=== PATIENT | female | born 1960 | race Caucasian/White ===

== ENCOUNTER 2020-02-11 09:34 | Outpatient (REF) | payer OTHER, SELFPAY ==
--- NOTE | 2020-02-11 09:40 | MM_ITS ---
EXAMINATION: MM SCREENING DIGITAL BREAST TOMOSYNTHESIS, BILATERAL CLINICAL INFORMATION: Screening. Asymptomatic. The lifetime risk of breast cancer based on the Tyrer-Cuzick Model is 13.3%. COMPARISON: Mammography: September 08, 2018 and April 30, 2016 TECHNIQUE: Digital breast tomosynthesis is performed in both the craniocaudal and mediolateral oblique views along with computer-aided detection (CAD). Synthesized 2D images are generated from the tomosynthesis. FINDINGS: The breasts are heterogeneously dense, which may obscure small masses (ACR BI-RADS breast composition Category c). There are no significant masses, abnormal calcifications, or other abnormalities. MM/MM tomosynthesis screening BI IMPRESSION: There are no significant changes from prior study. ASSESSMENT: BI-RADS 1: Negative RECOMMENDATION: Routine annual mammography screening. This patient's information was entered into a reminder system with a target due date for their next mammogram.
== END 2020-02-11 09:35 | disposition home or self-care (01) ==
LOC: HO.MAMMO 09:34
PROVIDERS: PCP Internal Medicine; Visit Provider Internal Medicine
DX: Z12.31 Encounter for screening mammogram for malignant neoplasm of breast (principal)
CPT/HCPCS: 77063; 77067

== ENCOUNTER → 2020-03-25 14:21 | Outpatient (BNVA) | payer OTHER, SELFPAY | PROVIDERS: PCP Internal Medicine; Visit Provider Nurse Practitioner Family | DX: Z76.89 Persons encountering health services in other specified circumstances (principal) ==

== ENCOUNTER 2020-04-04 10:12 | Outpatient (REF) | payer OTHER, SELFPAY ==
[2020-04-04 11:14] LABS: Hematocrit 43.2 % (37-47); Hemoglobin 14.2 g/dl (12.0-16.0); Mean Corpuscular HGB Conc 32.9 g/dl (31.0-35.0); Mean Corpuscular Hemoglobin 27.6 pg (27.0-33.0); Mean Corpuscular Volume 83.9 fL (80-98); Platelet Count 298 X10*3/uL (160-400); Red Blood Count 5.15 X10*6/uL (4.20-5.50); Red Cell Distribution Width 12.9 % (11.0-16.0); White Blood Count 7.5 X10*3/uL (4.8-10.8)
[2020-04-04 11:27] LABS: Alanine Aminotransferase 30 U/L (0-31); Albumin Level 4.4 g/dL (3.5-5.0); Alkaline Phosphatase 127 U/L (39-117); Anion Gap 15 (12-20); Aspartate Amino Transferase 20 U/L (5-31); Bilirubin Total 0.6 mg/dL (0.0-1.0); Blood Urea Nitrogen 14 mg/dL (9-16); Calcium 9.5 mg/dL (8.4-10.2); Carbon Dioxide 26 mmol/L (22-29); Chloride 105 mmol/L (96-108); Cholesterol 186 mg/dL; Estimated Glomerular Filt Rate > 60; Glucose Fasting 97 mg/dL (60-99); HDL Cholesterol 61 mg/dL; LDL Cholesterol Calculated 103 mg/dl; Potassium 4.6 mmol/l (3.3-5.1); Sodium 141 mmol/L (135-145); Total Protein 7.6 g/dL (6.5-8.0); Triglycerides 113 mg/dL
[2020-04-04 11:34] LABS: Glucose Urine UA NEG (NEG); Leukocyte Esterase Urine NEG (NEG); Nitrite Urine NEG (NEG); PH 5.5 (5.0-8.0); Specific Gravity - Urine 1.025 (1.005-1.025); Urine Blood NEG (NEG); Urine Ketones NEG (NEG); Urine Protein NEG (NEG-TRACE)
[2020-04-04 11:35] LABS: Estimated Average Glucose 103 mg/dL; Hemoglobin A1c % 5.2 %
[2020-04-04 11:37] LABS: Appearance Urine CLEAR; Color Urine YELLOW
[2020-04-04 11:48] LABS: Mucus Urine TRACE /LPF; RBC Urine 0 /HPF (0); Renal Epithelial Cells Urine TRACE /LPF; Squamous Epithelial Cell Urine 1+ /LPF; WBC Urine 0 /HPF (0-4)
[2020-04-04 11:51] LABS: TSH reflex Free T4 0.38 mIU/mL (0.32-4.0)
== END 2020-04-04 10:13 | disposition home or self-care (01) ==
LOC: HO.HMGCLDS 10:12
PROVIDERS: PCP Internal Medicine; Visit Provider Internal Medicine
DX: Z00.00 Encounter for general adult medical examination without abnormal findings (principal); R73.9 Hyperglycemia, unspecified
CPT/HCPCS: 36415; 80053; 80061; 81001; 83036; 84443; 85027

== ENCOUNTER 2020-05-24 07:30 | Day surgery (SDC) | payer OTHER, SELFPAY ==
--- NOTE | 2020-05-23 09:54 | HO.ANESPROP2 ---
Documented by User: Maryanne Barbosa 05/23/20 09:54 HPI - Anesthesia Eval Consult details Narrative: 59yo F for Colonoscopy PMFSH Active Problems Active Problems: All Active Problems (Updated 04/07/20 @ 12:45 by Mariaa Weinberg MD) Hyperlipidemia (Acute) Normal Pap smear (Acute) Mammogram normal (Acute) Hyperglycemia (Acute) Annual physical exam (Acute) Past Medical History Medical History Annual physical exam HTN (hypertension) Hyperglycemia Hyperlipidemia Mammogram normal Normal Pap smear Tubular adenoma Family History Family History Sister Hx of benign breast biopsy Father No problems noted. Mother No problems noted. Sister No problems noted. Son No problems noted. Son No problems noted. 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 Mother No problems noted. Sister No problems noted. Son No problems noted. Son No problems noted. 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
[2020-05-24 08:20] VITALS: BP 158/97; PULSE 76; RESP 16; TEMP 36.6; O2SAT 97; BMI 31.8
[2020-05-24] MEDS: Lactated Ringers 1,000 ML 100 ML IVCONT (08:38)
--- NOTE | 2020-05-24 08:48 | MHC.SHP ---
Pre-Procedural Eval Section B Chief Complaint: Screening Details of Present Illness: hX OF TUBULAR ADENOMA HAD COVID-19 2 MONTHS AGO--FULLY RECOVERED Relevant Family History (Specify if Yes): No Relevant Social History: None Present Medications: see Short Stay Collaborative assessment Medical History: Significant History (HTN, GERD) History of Previous Operations: Relevant previous surgery/procedure and date(s) ([id number]) Allergies: Allergies Allergy/AdvReac Type Severity Reaction Status Date / Time No Known Allergies Allergy Verified 05/24/20 08:18 [No Known Allergies*] Review of Systems Sugical H&P ROS: Negative: Constitution, Cardiovascular, Respiratory, Gastrointestinal and Musculoskeletal Review of Systems Comment: COVID 19 INFECTIN--2 MONTHS AGO Exam Surgical H&P Exam: Normal: HEENT, Normal: Heart, Normal: Lungs, Normal: Extremities and Normal: Abdomen Plan Diagnosis/Plan: Unchanged I have reviewed the history and physical and performed a pertinent physical examination on my patient. No changes have occurred unless specified.YES
[2020-05-24 09:21] VITALS: BP 117/52; PULSE 65; RESP 16; TEMP 36.7; O2SAT 96
--- NOTE | 2020-05-24 09:22 | PM.OP ---
Brief Operative Note Date of Service: 05/24/20 Pre-op diagnosis: colon cancer screening--hx complex polypectomy TA 2 year ago. Post-op diagnosis: other (Normal exam, 1+ Internal Hemorrhoids, no new polyps) Procedure: Colonoscopy Implants: NONE Surgeon: Phoebe Beckman MD Anesthesia: MAC (MD Jeremias) Estimated blood loss (mL): 0 Pathology: none sent Condition: stable Disposition: PACU
[2020-05-24 09:36] VITALS: BP 148/76; PULSE 68; RESP 18; O2SAT 97
--- NOTE | 2020-05-24 09:54 | HO.POSTANES ---
Post Anesthesia Evaluation Post Anesthesia Evaluation Vital Signs: Vital Signs Temp Pulse Resp BP Pulse Ox 05/24/20 09:36 68 18 148/76 H 97 05/24/20 09:21 98.1 F 65 16 117/52 L 96 05/24/20 08:20 97.8 F 76 16 158/97 H 97 Anesthesia: Monitored Mental Status: Awake Pain Control: Satisfactory Nausea/Vomiting: None Hydration: Adequate Anesthesia-Related Issues: No Anes. Related Issues
--- NOTE | 2020-05-29 13:06 | W.PM.OPN ---
Operative Note Operative Note Date of Service: 05/24/20 Narrative: Pre-op diagnosis: Colon Cancer Screening--hx complex polypectomy TA 2 year ago--Ascending colon --Josh Post-op diagnosis: other (Normal exam, 1+ Internal Hemorrhoids, no new polyps) Procedure: Colonoscopy Implants: NONE Surgeon: Phoebe Beckman MD Anesthesia: MAC (MD Jeremias) FINDINGS: ELINA: Somewhat decreased sphincter tone. Adult slim colonoscope introduced without difficulty navigated through sigmoid, descending, transverse and ascending colon into the cecal cap. Appendiceal orifice and ileocecal valve were identified. PREP: GOOD Site of previous complex polypectomy was identified and was clean. No residual adenomatous tissue seen. Slow withdrawal of scope, good rotational views no new polyps were seen. ARV was clear. 1+Internal Hemorrhoids were seen in the Anal canal. Estimated blood loss (mL): 0 Pathology: none sent Condition: stable Disposition: PACU PLAN: Patient to be placed on 5 year recall: Hx of Tubular Adenoma--Josh is her GI doctor.
== END 2020-05-24 10:14 | disposition home or self-care (01) ==
PROVIDERS: PCP Internal Medicine; Visit Provider Internal Medicine Gastroenterology
PROC: 0DJD8ZZ Inspection of Lower Intestinal Tract, Via Natural or Artificial Opening Endoscopic (ICD-10-PCS; CPT 45378; principal; 2020-05-24 08:30)
DX: Z12.11 Encounter for screening for malignant neoplasm of colon (principal); Z86.010 Personal history of colon polyps; K64.8 Other hemorrhoids; I10 Essential (primary) hypertension; Z79.899 Other long term (current) drug therapy
CPT/HCPCS: 45378

== ENCOUNTER → 2020-06-30 14:33 | Outpatient (BNVA) | payer OTHER, SELFPAY | PROVIDERS: PCP Internal Medicine; Visit Provider Nurse Practitioner Family ==

== ENCOUNTER 2020-07-25 | Outpatient (REF) | payer OTHER, SELFPAY | END 2020-07-25 00:01 | disposition home or self-care (01) | LOC: HO.HMGCLNP | PROVIDERS: Visit Provider Nurse Practitioner Family | DX: K21.9 Gastro-esophageal reflux disease without esophagitis (principal) | CPT/HCPCS: 87338 ==

== ENCOUNTER → 2020-10-03 09:30 | Outpatient (BNVA) | payer OTHER, SELFPAY | PROVIDERS: Referring Provider Internal Medicine; Visit Provider Nurse Practitioner Family ==

== ENCOUNTER 2020-10-12 09:07 | Outpatient (REF) | payer OTHER, SELFPAY ==
[2020-10-12 11:44] LABS: Alanine Aminotransferase 29 U/L (0-31); Albumin Level 4.3 g/dL (3.5-5.0); Alkaline Phosphatase 116 U/L (39-117); Anion Gap 12 (12-20); Aspartate Amino Transferase 20 U/L (5-31); Bilirubin Total 0.6 mg/dL (0.0-1.0); Blood Urea Nitrogen 14 mg/dL (9-16); Carbon Dioxide 29 mmol/L (22-29); Chloride 106 mmol/L (96-108); Cholesterol 204 mg/dL; Estimated Glomerular Filt Rate > 60; Glucose Fasting 95 mg/dL (60-99); HDL Cholesterol 56 mg/dL; LDL Cholesterol Calculated 117 mg/dl; Potassium 4.5 mmol/L (3.3-5.1); Sodium 142 mmol/L (135-145); Total Protein 7.5 g/dL (6.5-8.0); Triglycerides 158 mg/dL
== END 2020-10-12 09:08 | disposition home or self-care (01) ==
LOC: HO.HMGCLDS 09:07
PROVIDERS: PCP Internal Medicine; Visit Provider Internal Medicine
DX: E78.5 Hyperlipidemia, unspecified (principal); I10 Essential (primary) hypertension
CPT/HCPCS: 36415; 80053; 80061

== ENCOUNTER 2020-10-13 11:09 | Outpatient (REF) | payer OTHER, SELFPAY ==
--- NOTE | ~2020-10-13 | XR_ITS ---
EXAMINATION: XR THORACOLUMBAR SPINE CLINICAL INFORMATION: M54.9 - Dorsalgia, unspecified COMPARISON: None TECHNIQUE: Thoracic spine is imaged in 3 views. FINDINGS: There is normal thoracic segmentation with 12 rib-bearing thoracic vertebrae of normal height and normal thoracic kyphosis. There is no thoracic vertebral compression, visible fracture, destructive process, or paraspinal soft tissue swelling. There are mild degenerative changes with some borderline anterior vertebral spurring mid and lower thoracic spine. There is no focal disc narrowing or erosive changes. No spondylolisthesis. XR/XR thoracic spine 2V IMPRESSION: No vertebral compression, spondylolisthesis, or focal disc narrowing.
== END 2020-10-13 11:10 | disposition home or self-care (01) ==
LOC: HO.HMGCX 11:09
PROVIDERS: PCP Internal Medicine; Visit Provider Internal Medicine
DX: M54.9 Dorsalgia, unspecified (principal)
CPT/HCPCS: 72070

== ENCOUNTER 2021-02-18 08:22 | Outpatient (REF) | payer OTHER, SELFPAY ==
--- NOTE | ~2021-02-18 | MM_ITS ---
EXAMINATION: MM SCREENING DIGITAL BREAST TOMOSYNTHESIS, BILATERAL CLINICAL INFORMATION: Screening. Asymptomatic. The lifetime risk of breast cancer based on the Tyrer-Cuzick Model is 13%. COMPARISON: Mammography: 02/11/2020, 09/08/2018; outside mammography 04/30/2016 TECHNIQUE: Digital breast tomosynthesis is performed in both the craniocaudal and mediolateral oblique views along with computer-aided detection (CAD). Synthesized 2D images are generated from the tomosynthesis. FINDINGS: The breasts are heterogeneously dense, which may obscure small masses (ACR BI-RADS breast composition Category c). Parenchymal pattern is similar to prior studies. There is no developing density or interval significant mass or architectural abnormality. Scattered punctate regional calcifications central left breast are stable. There are no significant changes from prior studies. MM/MM tomosynthesis screening BI IMPRESSION: No mammographic evidence of malignancy. ASSESSMENT: BI-RADS 2: Benign RECOMMENDATION: Routine annual mammography screening. This patient's information was entered into a reminder system with a target due date for their next mammogram.
== END 2021-02-18 08:23 | disposition home or self-care (01) ==
LOC: HO.MAMMO 08:22
PROVIDERS: Visit Provider Internal Medicine
DX: Z12.31 Encounter for screening mammogram for malignant neoplasm of breast (principal)
CPT/HCPCS: 77063; 77067

== ENCOUNTER 2021-05-08 09:11 | Outpatient (REF) | payer OTHER, SELFPAY ==
[2021-05-08 11:24] LABS: Appearance Urine TURBID; Color Urine YELLOW; Glucose Urine UA NEG (NEG); Leukocyte Esterase Urine 2+ (NEG); Nitrite Urine NEG (NEG); PH 5.5 (5.0-8.0); Specific Gravity - Urine >= 1.030 (1.005-1.025); Urine Blood NEG (NEG); Urine Ketones NEG (NEG); Urine Protein TRACE MG/DL (NEG-TRACE)
[2021-05-08 11:33] LABS: Hemoglobin 13.7 g/dl (12.0-16.0); Mean Corpuscular HGB Conc 32.6 g/dl (31.0-35.0); Mean Corpuscular Hemoglobin 26.6 pg (27.0-33.0); Mean Corpuscular Volume 81.6 fL (80.0-98.0); Platelet Count 341 X10*3/uL (160-400); Red Blood Count 5.15 X10*6/uL (4.20-5.50); Red Cell Distribution Width 12.9 % (11.0-16.0); White Blood Count 7.1 X10*3/uL (4.8-10.8)
[2021-05-08 11:53] LABS: Calcium Oxalate Crystals Urine TRACE /LPF; RBC Urine 0 /HPF (0); Squamous Epithelial Cell Urine 2+ /LPF
[2021-05-08 11:54] LABS: Amorphous Sediment Urine 4+ /LPF
[2021-05-08 12:16] LABS: TSH reflex Free T4 0.44 uIU/mL (0.32-4.0)
[2021-05-08 12:22] LABS: Alanine Aminotransferase 30 U/L (0-31); Albumin Level 4.3 g/dL (3.5-5.0); Alkaline Phosphatase 105 U/L (39-117); Anion Gap 13 (12-20); Aspartate Amino Transferase 22 U/L (5-31); Bilirubin Total 0.6 mg/dL (0.0-1.0); Blood Urea Nitrogen 15 mg/dL (9-16); Calcium 9.8 mg/dL (8.4-10.2); Carbon Dioxide 23 mmol/L (22-29); Chloride 110 mmol/L (96-108); Cholesterol 186 mg/dL; Estimated Glomerular Filt Rate > 60; Glucose Fasting 108 mg/dL (60-99); HDL Cholesterol 52 mg/dL; LDL Cholesterol Calculated 109 mg/dl; Potassium 3.9 mmol/L (3.3-5.1); Sodium 142 mmol/L (135-145); Total Protein 7.5 g/dL (6.5-8.0); Triglycerides 127 mg/dL
== END 2021-05-08 09:12 | disposition home or self-care (01) ==
LOC: HO.LAB 09:11
PROVIDERS: PCP Internal Medicine; Visit Provider Internal Medicine
DX: I10 Essential (primary) hypertension (principal); E78.5 Hyperlipidemia, unspecified
CPT/HCPCS: 36415; 80053; 80061; 81001; 84443; 85027

== ENCOUNTER 2021-11-07 08:58 | Outpatient (REF) | payer OTHER, SELFPAY ==
[2021-11-07 12:10] LABS: Estimated Average Glucose 105 mg/dL; Hemoglobin A1c % 5.3 %
[2021-11-07 12:11] LABS: Alanine Aminotransferase 27 U/L (0-31); Albumin Level 4.2 g/dL (3.5-5.0); Alkaline Phosphatase 99 U/L (39-117); Anion Gap 14 (12-20); Aspartate Amino Transferase 19 U/L (5-31); Bilirubin Total 0.6 mg/dL (0.0-1.0); Blood Urea Nitrogen 16 mg/dL (9-16); Calcium 9.2 mg/dL (8.4-10.2); Carbon Dioxide 27 mmol/L (22-29); Chloride 106 mmol/L (96-108); Cholesterol 196 mg/dL; Estimated Glomerular Filt Rate > 60; Glucose Fasting 102 mg/dL (60-99); HDL Cholesterol 62 mg/dL; LDL Cholesterol Calculated 103 mg/dl; Sodium 143 mmol/L (135-145); Total Protein 7.3 g/dL (6.5-8.0); Triglycerides 155 mg/dL
== END 2021-11-07 08:59 | disposition home or self-care (01) ==
LOC: HO.HMGCLDS 08:58
PROVIDERS: PCP Internal Medicine; Visit Provider Internal Medicine
DX: Z00.00 Encounter for general adult medical examination without abnormal findings (principal); E78.5 Hyperlipidemia, unspecified; I10 Essential (primary) hypertension
CPT/HCPCS: 36415; 80053; 80061; 83036; 84443

== ENCOUNTER 2021-11-30 10:37 | Outpatient (REF) | payer OTHER, SELFPAY ==
[2021-11-30 14:47] LABS: Anion Gap 15 (12-20); Blood Urea Nitrogen 13 mg/dL (9-16); Calcium 9.7 mg/dL (8.4-10.2); Carbon Dioxide 26 mmol/L (22-29); Chloride 106 mmol/L (96-108); Estimated Glomerular Filt Rate > 60; Glucose Random 107 mg/dL (60-115); Sodium 143 mmol/L (135-145)
== END 2021-11-30 10:38 | disposition home or self-care (01) ==
LOC: HO.HMGCLDS 10:37
PROVIDERS: PCP Internal Medicine; Visit Provider Internal Medicine
DX: I10 Essential (primary) hypertension (principal)
CPT/HCPCS: 36415; 80048

== ENCOUNTER 2021-12-12 10:50 | Outpatient (REF) | payer OTHER, SELFPAY ==
[2021-12-14 13:22] LABS: HPV mRNA E6/E7 Not Detected (Not Detected)
== END 2021-12-12 10:51 | disposition home or self-care (01) ==
LOC: HO.LNP 10:50
PROVIDERS: Visit Provider Internal Medicine
DX: Z01.419 Encounter for gynecological examination (general) (routine) without abnormal findings (principal); Z11.51 Encounter for screening for human papillomavirus (HPV)
CPT/HCPCS: 87624; 88142

== ENCOUNTER 2021-12-12 10:50 | Outpatient (REF) | payer OTHER, SELFPAY ==
[2021-12-13 13:29] LABS: BV Int Neg Control Negative (Negative); BV Int Pos Control Positive (Positive)
== END 2021-12-12 10:51 | disposition home or self-care (01) ==
LOC: HO.LAB 10:50
PROVIDERS: Visit Provider Internal Medicine
DX: N76.0 Acute vaginitis (principal)
CPT/HCPCS: 87480; 87510; 87660

== ENCOUNTER 2022-02-28 09:27 | Outpatient (REF) | payer OTHER, SELFPAY ==
--- NOTE | ~2022-02-28 | MM_ITS ---
EXAMINATION: MM SCREENING DIGITAL BREAST TOMOSYNTHESIS, BILATERAL CLINICAL INFORMATION: Screening. Asymptomatic. The lifetime risk of breast cancer based on the Tyrer-Cuzick Model is 10%. COMPARISON: Mammography: 02/18/2021, 02/11/2020, 09/08/2018 TECHNIQUE: Digital breast tomosynthesis is performed in both the craniocaudal and mediolateral oblique views along with computer-aided detection (CAD). Synthesized 2D images are generated from the tomosynthesis. Additional bilateral MLO views are provided. FINDINGS: The breasts are heterogeneously dense, which may obscure small masses (ACR BI-RADS breast composition Category c). There are no significant masses, abnormal calcifications, or other abnormalities. Parenchymal pattern is similar to prior exams. No developing density or architectural abnormality. There are scattered punctate regional calcifications again seen central left breast and some lesser scattered calcifications on the right. No significant changes. The axilla and skin contours are unremarkable. MM/MM tomosynthesis screening BI IMPRESSION: No mammographic evidence of malignancy. ASSESSMENT: BI-RADS 2: Benign RECOMMENDATION: Routine annual mammography screening. This patient's information was entered into a reminder system with a target due date for their next mammogram.
== END 2022-02-28 09:28 | disposition home or self-care (01) ==
LOC: HO.MAMMO 09:27
PROVIDERS: PCP Internal Medicine; Visit Provider Internal Medicine
DX: Z12.31 Encounter for screening mammogram for malignant neoplasm of breast (principal)
CPT/HCPCS: 77063; 77067

== ENCOUNTER 2022-05-14 09:23 | Outpatient (REF) | payer OTHER, SELFPAY ==
[2022-05-14 11:43] LABS: MANUAL DIFF FLAG NO
[2022-05-14 11:50] LABS: Appearance Urine Clear; Color Urine Yellow; Glucose Urine UA Negative (Negative); Leukocyte Esterase Urine Large (3+) (Negative); Nitrite Urine Negative (Negative); PH 5.5 (5.0-9.0); Specific Gravity - Urine 1.015 (1.005-1.025); UMIC TRIGGER UA YES; Urine Blood Negative (Negative); Urine Ketones Negative (Negative); Urine Protein Negative (Neg-Trace)
[2022-05-14 11:55] LABS: Bacteria Urine None Seen (None Seen); Hyaline Casts Urine 0-2 /LPF (0-2); RBC Urine 0-2 /HPF (0-2); Squamous Epithelial Cell Urine 0-2 /HPF (0-2)
[2022-05-14 11:56] LABS: Basophils Absolute Auto 0.1 X10*3/uL (0.0-0.2); Basophils Percent Auto 0.8 % (0-2); Eosinophils Absolute Auto 0.2 X10*3/uL (0.0-0.4); Eosinophils Percent Auto 2.8 % (0-4); Hematocrit 43.4 % (37.0-47.0); Hemoglobin 13.9 g/dl (12.0-16.0); Imm Gran Abs Auto 0.02 X10*3/uL (0.00-0.03); Imm Gran Pct Auto 0.3 % (0.0-0.4); Lymphocytes Absolute Auto 2.5 X10*3/uL (1.2-4.9); Mean Corpuscular Hemoglobin 26.1 pg (27.0-33.0); Mean Corpuscular Volume 81.4 fL (80.0-98.0); Mean Platelet Volume 11.4 fL (9.4-12.3); Monocytes Absolute Auto 0.7 X10*3/uL (0.1-1.2); Monocytes Percent Auto 10.8 % (2-11); Neutrophils Absolute Auto 2.7 x10*3/uL (2.0-8.3); Neutrophils Percent Auto 44.3 % (45-73); Platelet Count 287 X10*3/uL (160-400); Red Blood Count 5.33 X10*6/uL (4.20-5.50); Red Cell Distribution Width 13.2 % (11.0-16.0); White Blood Count 6.1 X10*3/uL (4.8-10.8)
[2022-05-14 12:07] LABS: Alanine Aminotransferase 28 U/L (0-31); Albumin Level 4.3 g/dL (3.5-5.0); Alkaline Phosphatase 111 U/L (39-117); Anion Gap 14 (12-20); Aspartate Amino Transferase 20 U/L (5-31); Bilirubin Total 0.7 mg/dL (0.0-1.0); Blood Urea Nitrogen 17 mg/dL (9-16); Calcium 9.4 mg/dL (8.4-10.2); Carbon Dioxide 27 mmol/L (22-29); Chloride 105 mmol/L (96-108); Cholesterol 189 mg/dL; Estimated Glomerular Filt Rate > 60; Glucose Fasting 106 mg/dL (60-99); HDL Cholesterol 59 mg/dL; LDL Cholesterol Calculated 111 mg/dl; Potassium 4.3 mmol/L (3.3-5.1); Sodium 142 mmol/L (135-145); Total Protein 7.5 g/dL (6.5-8.0); Triglycerides 96 mg/dL
[2022-05-14 12:23] LABS: TSH reflex Free T4 0.81 uIU/mL (0.32-4.0)
== END 2022-05-14 09:24 | disposition home or self-care (01) ==
LOC: HO.HMGCLDS 09:23
PROVIDERS: PCP Internal Medicine; Visit Provider Internal Medicine
DX: Z00.00 Encounter for general adult medical examination without abnormal findings (principal); E78.5 Hyperlipidemia, unspecified; I10 Essential (primary) hypertension
CPT/HCPCS: 36415; 80053; 80061; 81001; 84443; 85025

== ENCOUNTER 2022-05-17 13:24 | Outpatient (REF) | payer OTHER, SELFPAY ==
[2022-05-17 16:51] LABS: MANUAL DIFF FLAG NO
[2022-05-17 17:12] LABS: Alanine Aminotransferase 23 U/L (0-31); Albumin Level 4.3 g/dL (3.5-5.0); Alkaline Phosphatase 110 U/L (39-117); Anion Gap 13 (12-20); Aspartate Amino Transferase 16 U/L (5-31); Bilirubin Total 0.5 mg/dL (0.0-1.0); Blood Urea Nitrogen 22 mg/dL (9-16); Calcium 9.6 mg/dL (8.4-10.2); Carbon Dioxide 28 mmol/L (22-29); Chloride 104 mmol/L (96-108); Cholesterol 190 mg/dL; Estimated Glomerular Filt Rate > 60; Glucose Fasting 92 mg/dL (60-99); HDL Cholesterol 55 mg/dL; LDL Cholesterol Calculated 103 mg/dl; Potassium 4.4 mmol/L (3.3-5.1); Sodium 141 mmol/L (135-145); Total Protein 7.4 g/dL (6.5-8.0); Triglycerides 160 mg/dL
[2022-05-17 17:21] LABS: Basophils Absolute Auto 0.1 X10*3/uL (0.0-0.2); Basophils Percent Auto 0.8 % (0-2); Eosinophils Absolute Auto 0.1 X10*3/uL (0.0-0.4); Eosinophils Percent Auto 1.7 % (0-4); Hematocrit 41.7 % (37.0-47.0); Hemoglobin 13.6 g/dl (12.0-16.0); Imm Gran Abs Auto 0.02 X10*3/uL (0.00-0.03); Imm Gran Pct Auto 0.3 % (0.0-0.4); Lymphocytes Absolute Auto 2.9 X10*3/uL (1.2-4.9); Lymphocytes Percent Auto 37.7 % (20-40); Mean Corpuscular HGB Conc 32.6 g/dl (31.0-35.0); Mean Corpuscular Hemoglobin 26.8 pg (27.0-33.0); Mean Corpuscular Volume 82.2 fL (80.0-98.0); Mean Platelet Volume 11.8 fL (9.4-12.3); Monocytes Absolute Auto 0.6 X10*3/uL (0.1-1.2); Monocytes Percent Auto 7.6 % (2-11); Neutrophils Percent Auto 51.9 % (45-73); Platelet Count 307 X10*3/uL (160-400); Red Blood Count 5.07 X10*6/uL (4.20-5.50); Red Cell Distribution Width 13.1 % (11.0-16.0); White Blood Count 7.7 X10*3/uL (4.8-10.8)
[2022-05-17 17:38] LABS: Estimated Average Glucose 111 mg/dL; Hemoglobin A1c % 5.5 %
== END 2022-05-17 13:25 | disposition home or self-care (01) ==
LOC: HO.HMGCLDS 13:24
PROVIDERS: PCP Internal Medicine; Visit Provider Internal Medicine
DX: I10 Essential (primary) hypertension (principal); R30.0 Dysuria; E78.5 Hyperlipidemia, unspecified
CPT/HCPCS: 36415; 80053; 80061; 83036; 85025; 87086; 87147

== ENCOUNTER 2022-06-09 08:42 | Outpatient (REF) | payer OTHER, SELFPAY | END 2022-06-09 08:43 | disposition home or self-care (01) | LOC: HO.HMGCLDS 08:42 | PROVIDERS: PCP Internal Medicine; Visit Provider Internal Medicine | DX: R30.0 Dysuria (principal) | CPT/HCPCS: 87086; 87147 ==

== ENCOUNTER 2022-11-13 09:35 | Outpatient (AMB) | payer OTHER, SELFPAY ==
[2022-11-13 09:45] VITALS: BP 126/74; PULSE 73; O2SAT 98; BMI 33.1
--- NOTE | 2022-11-13 09:45 | MHC.PC.OV ---
Vital Signs 11/13/22 09:45 Height 5 ft 1.5 in Weight 178 lb BMI 33.1 BP 126/74 Blood Pressure Location Lt brachial Position Sitting Pulse 73 Pulse Source Pulse Oximeter Pulse Oximetry (%) 98 Oxygen Delivery Method Room Air Intake Visit Reasons: 6m follow up HTN Intake Note: Pt is here today for 6 months follow up visit. Pt needs a refill on all of her meds. Allergies No Known Allergies [No Known Allergies*] Allergy (Verified 11/13/22 09:47) Medication List - Last Reconciled 11/13/22 by Mariaa Weinberg MD amlodipine 2.5 mg PO DAILY atorvastatin 10 mg PO DAILY benazepril 40 mg PO DAILY compr.stocking,knee,long,large 10-20 mmHg hydrochlorothiazide 12.5 mg PO DAILY lactobacillus combination no.8 (Adult Probiotic) 3,000 mmu cells PO DAILY omeprazole 20 mg PO DAILY triamcinolone acetonide 0.5% 1 appl topical DAILY Tobacco use date assessed: 11/13/22 Dental Screening Dental Screen Date: 11/13/22 Did you have a dental visit in the last 12 months?: Yes Did you have a dental problem in the last 6 months where you did not have access to dental care?: No Was dental information given to patient?: Patient has dentist HPI 6m follow up HTN HPI Details Pt presents for f/u HTN, hyperlipid, stable on meds. Patient reports intermittent lower back pain radiating to right lower extremity when lifting or caring heavy. [facility] Medical History Annual physical exam Back pain HTN (hypertension) Hyperlipidemia Mammogram normal Normal Pap smear Tubular adenoma Venous insufficiency of both lower extremities Surgical History History of ear surgery Hx of colonoscopy Family History Sister Hx of benign breast biopsy Father No problems noted. Mother No problems noted. Sister No problems noted. Son No problems noted. Son No problems noted. Social History Household Members: Spouse Housing: House Alcohol intake: never Patient Tobacco Use Status: Never used Tobacco e-Cigarette/Vaping Use: Never Used Current occupational status: employed Current occupation: CLEANING SERVICE Cognitive needs: No Hearing needs: No Vision needs: Yes Questionnaire Thrive Questionnaire Date Thrive assessed: 05/17/22 AUDIT C Alcohol Use Questionnaire (AUDIT-C) 1. How often do you have a drink containing alcohol?: Never 3. How often do you have six or more drinks on one occasion?: Never Total Score: 0 LISA-7 AMB Questionnaire LISA-7 Date LISA - 7 assessed: 05/17/22 Source: Developed by Drs. Ankit Morales, Silvia Fatima, Rigo Esquivel and colleagues, with an educational keira from [employer]. Review of Systems Const All systems reviewed & are unremarkable except as noted in HPI and below Reports no additional complaints Eyes Reports no additional complaints ENT Reports no additional complaints Card Reports no additional complaints Resp Reports no additional complaints GI Reports no additional complaints Reports no additional complaints Physical exam (Primary Care) Vital Signs: Last Vital Signs Pulse 73 11/13/22 09:45 BP 126/74 11/13/22 09:45 Pulse Ox 98 11/13/22 09:45 Oxygen Delivery Method Room Air 11/13/22 09:45 BMI result Body Mass Index 33.1 Tobacco/Smoking Status: Tobacco use Status Tobacco use date assessed 11/13/22 11/13/22 09:51 Patient Tobacco Use Status Never used Tobacco 11/13/22 09:46 e-Cigarette/Vaping Use Never Used 11/13/22 09:46 Thrive Assessment: Date of Thrive Assessment Date Thrive assessed 05/17/22 11/13/22 09:46 Const General: no acute distress HENMT Mouth: Normal oral and palatal mucosa present Throat: Yes posterior oropharynx normal Neck Neck: Yes supple Resp Effort & Inspection: normal respiratory effort Auscultation: clear to auscultation bilaterally Cardio Rhythm: regular rhythm Heart sounds: S1 normal heart sound present and S2 normal heart sound present Assessment and Plan Assessment & Plan (1) HTN (hypertension): Code(s): I10 - Essential (primary) hypertension Plan: Change hydrochlorothiazide 12.5 mg to bisoprolol with hydrochlorothiazide 5/6.25 and continue amlodipine and benazepril. Check BMP in 1 week (2) Hyperlipidemia: Code(s): E78.5 - Hyperlipidemia, unspecified Plan: Continue statin (3) Back pain: Code(s): M54.9 - Dorsalgia, unspecified Plan: Lower back exercises discussed with the patient Orders: Orders Basic Metabolic Panel 1 Week I10 - Essential (primary) hypertension Medications: New bisoprolol-hydrochlorothiazide 5-6.25 mg 1 tab PO DAILY 90 tabs 0RF Refilled atorvastatin 10 mg PO DAILY 90 tabs 3RF amlodipine 2.5 mg PO DAILY 90 tabs 3RF benazepril 40 mg PO DAILY 90 tabs 3RF omeprazole 20 mg PO DAILY 90 caps 3RF triamcinolone acetonide 0.5% 1 appl topical DAILY 15 grams 4RF Coding Level of Care Code Est Pt Level 4 (62793) Diagnoses HTN (hypertension) I10 Hyperlipidemia E78.5 Back pain M54.9
== END 2022-11-13 10:29 | disposition home or self-care (01) ==
PROVIDERS: Visit Provider Internal Medicine
DX: I10 Essential (primary) hypertension (principal); E78.5 Hyperlipidemia, unspecified; M54.9 Dorsalgia, unspecified
CPT/HCPCS: 99214

== ENCOUNTER 2022-11-24 10:19 | Outpatient (REF) | payer OTHER, SELFPAY ==
[2022-11-24 11:44] LABS: Anion Gap 13 (12-20); Blood Urea Nitrogen 14 mg/dL (9-16); Calcium 9.9 mg/dL (8.4-10.2); Carbon Dioxide 28 mmol/L (22-29); Chloride 106 mmol/L (96-108); Estimated Glomerular Filt Rate > 60; Glucose Random 103 mg/dL (60-115); Potassium 3.8 mmol/L (3.3-5.1); Sodium 143 mmol/L (135-145)
== END 2022-11-24 10:20 | disposition home or self-care (01) ==
LOC: HO.HMGCLDS 10:19
PROVIDERS: PCP Internal Medicine; Visit Provider Internal Medicine
DX: I10 Essential (primary) hypertension (principal)
CPT/HCPCS: 36415; 80048

== ENCOUNTER 2023-02-22 09:39 | Outpatient (REF) | payer OTHER, SELFPAY ==
[2023-02-22 13:32] LABS: MANUAL DIFF FLAG NO
[2023-02-22 13:42] LABS: Basophils Percent Auto 0.6 % (0-2); Eosinophils Absolute Auto 0.2 X10*3/uL (0.0-0.4); Eosinophils Percent Auto 2.5 % (0-4); Hematocrit 41.4 % (37.0-47.0); Hemoglobin 13.6 g/dl (12.0-16.0); Imm Gran Abs Auto 0.01 X10*3/uL (0.00-0.03); Imm Gran Pct Auto 0.2 % (0.0-0.4); Lymphocytes Absolute Auto 2.4 X10*3/uL (1.2-4.9); Lymphocytes Percent Auto 38.5 % (20-40); Mean Corpuscular HGB Conc 32.9 g/dl (31.0-35.0); Mean Corpuscular Hemoglobin 26.9 pg (27.0-33.0); Mean Corpuscular Volume 81.8 fL (80.0-98.0); Mean Platelet Volume 11.2 fL (9.4-12.3); Monocytes Absolute Auto 0.5 X10*3/uL (0.1-1.2); Monocytes Percent Auto 8.4 % (2-11); Neutrophils Absolute Auto 3.2 x10*3/uL (2.0-8.3); Neutrophils Percent Auto 49.8 % (45-73); Platelet Count 287 X10*3/uL (160-400); Red Blood Count 5.06 X10*6/uL (4.20-5.50); White Blood Count 6.3 X10*3/uL (4.8-10.8)
[2023-02-22 14:12] LABS: Alanine Aminotransferase 25 U/L (0-31); Albumin Level 4.1 g/dL (3.5-5.0); Alkaline Phosphatase 99 U/L (39-117); Anion Gap 11 (12-20); Aspartate Amino Transferase 19 U/L (5-31); Bilirubin Total 0.6 mg/dL (0.0-1.0); Blood Urea Nitrogen 16 mg/dL (9-16); Calcium 9.6 mg/dL (8.4-10.2); Carbon Dioxide 27 mmol/L (22-29); Chloride 107 mmol/L (96-108); Cholesterol 211 mg/dL (<200); Estimated Glomerular Filt Rate > 60; Glucose Fasting 98 mg/dL (60-99); HDL Cholesterol 55 mg/dL (>40); LDL Cholesterol Calculated 134 mg/dL (<100); Sodium 141 mmol/L (135-145); Total Protein 7.5 g/dL (6.5-8.0); Triglycerides 112 mg/dL (<150)
== END 2023-02-22 09:40 | disposition home or self-care (01) ==
LOC: HO.HMGCLDS 09:39
PROVIDERS: PCP Internal Medicine; Visit Provider Internal Medicine
DX: Z00.00 Encounter for general adult medical examination without abnormal findings (principal); E78.5 Hyperlipidemia, unspecified; I10 Essential (primary) hypertension
CPT/HCPCS: 36415; 80053; 80061; 85025

== ENCOUNTER 2023-02-25 09:54 | Outpatient (AMB) | payer OTHER, SELFPAY ==
[2023-02-25 10:01] VITALS: BP 125/76; PULSE 88; O2SAT 95; BMI 32.5
--- NOTE | 2023-02-25 10:01 | A.OFFPC_ITS ---
Vital Signs 02/25/23 10:01 Height 5 ft 1.5 in Weight 175 lb BMI 32.5 BP 125/76 Blood Pressure Location Lt brachial Position Sitting Pulse 88 Pulse Source Pulse Oximeter Pulse Oximetry (%) 95 Oxygen Delivery Method Room Air Intake Visit Reasons: 3 Month follow up Intake Note: Pt is here today for 3 months follow up visit. Allergies bisoprolol Adverse Reaction (Intermediate, Verified 02/25/23 10:46) Headache Medication List - Last Reconciled 02/25/23 by Mariaa Weinberg MD amlodipine 2.5 mg PO DAILY atorvastatin 10 mg PO DAILY benazepril 40 mg PO DAILY compr.stocking,knee,long,large 10-20 mmHg lactobacillus combination no.8 (Adult Probiotic) 3,000 mmu cells PO DAILY omeprazole 20 mg PO DAILY triamcinolone acetonide 0.5% 1 appl topical DAILY Tobacco use date assessed: 11/13/22 HPI 3 Month follow up HPI Details Pt presents for f/u HTN and hyperlipid, stable on meds. Patient could not tolerate bisoprolol, developed headache. [facility] Medical History Venous insufficiency of both lower extremities Back pain Hyperlipidemia Normal Pap smear Mammogram normal HTN (hypertension) Tubular adenoma Annual physical exam Surgical History History of ear surgery Hx of colonoscopy Family History Sister Hx of benign breast biopsy Father No problems noted. Mother No problems noted. Sister No problems noted. Son No problems noted. Son No problems noted. Social History Household Members: Spouse Housing: House Alcohol intake: never Patient Tobacco Use Status: Never used Tobacco e-Cigarette/Vaping Use: Never Used Current occupational status: employed Current occupation: CLEANING SERVICE Cognitive needs: No Hearing needs: No Vision needs: Yes Questionnaire Thrive Questionnaire Date Thrive assessed: 05/17/22 LISA-7 AMB Questionnaire LISA-7 Date LISA - 7 assessed: 05/17/22 Source: Developed by Drs. Ankit Morales, Silvia Fatima, Rigo Esquivel and colleagues, with an educational keira from [employer]. Review of Systems Const All systems reviewed & are unremarkable except as noted in HPI and below Reports no additional complaints Eyes Reports no additional complaints ENT Reports no additional complaints Card Reports no additional complaints Resp Reports no additional complaints GI Reports no additional complaints Physical exam (Primary Care) Vital Signs: Last Vital Signs Pulse 88 02/25/23 10:01 BP 142/76 H 02/25/23 10:01 Pulse Ox 95 02/25/23 10:01 Oxygen Delivery Method Room Air 02/25/23 10:01 BMI result Body Mass Index 32.5 Tobacco/Smoking Status: Tobacco use Status Tobacco use date assessed 11/13/22 02/25/23 10:05 Patient Tobacco Use Status Never used Tobacco 02/25/23 10:05 e-Cigarette/Vaping Use Never Used 02/25/23 10:05 Thrive Assessment: Date of Thrive Assessment Date Thrive assessed 05/17/22 02/25/23 10:05 Const General: no acute distress HENMT Head: Yes normal to inspection Eyes General: appearance normal, both eyes and all related structures Neck Neck: Yes supple Resp Effort & Inspection: normal respiratory effort Auscultation: clear to auscultation bilaterally Cardio Rhythm: regular rhythm Heart sounds: S1 normal heart sound present and S2 normal heart sound present GI Inspection: Yes normal to inspection Palpation (GI): Soft to palpation Assessment and Plan Assessment & Plan (1) HTN (hypertension): Code(s): I10 - Essential (primary) hypertension Plan: Continue current medications, increase physical activity weight loss discussed with the patient ,she will return for physical in May (2) Hyperlipidemia: Code(s): E78.5 - Hyperlipidemia, unspecified Plan: Continue statin (3) Annual physical exam: Code(s): Z00.00 - Encounter for general adult medical examination without abnormal findings (4) Vaginal atrophy: Code(s): N95.2 - Postmenopausal atrophic vaginitis Plan: Try Estrace vaginal cream once a week Orders: Orders Comprehensive [place]. Panel Fast 4 Months E78.5 - Hyperlipidemia, unspecified, I10 - Essential (primary) hypertension, Z00.00 - Encounter for general adult medical examination without abnormal findings Lipid Panel 4 Months E78.5 - Hyperlipidemia, unspecified, I10 - Essential (primary) hypertension, Z00.00 - Encounter for general adult medical examination without abnormal findings TSH reflex Free T4 4 Months E78.5 - Hyperlipidemia, unspecified, I10 - Essential (primary) hypertension, Z00.00 - Encounter for general adult medical examination without abnormal findings Complete Blood Count Auto Diff 4 Months E78.5 - Hyperlipidemia, unspecified, I10 - Essential (primary) hypertension, Z00.00 - Encounter for general adult medical examination without abnormal findings Vitamin D 25-OH Total 4 Months E78.5 - Hyperlipidemia, unspecified, I10 - Essential (primary) hypertension, Z00.00 - Encounter for general adult medical examination without abnormal findings Medications: New estradiol 0.01%(0.1mg/gram) (Estrace) 1 g vaginal QWEEK 42.5 grams 2RF hydrochlorothiazide 12.5 mg PO DAILY 90 tabs 3RF Coding Level of Care Code Est Pt Level 4 (50138) Diagnoses HTN (hypertension) I10 Hyperlipidemia E78.5 Annual physical exam Z00.00 Vaginal atrophy N95.2
== END 2023-02-25 10:59 | disposition home or self-care (01) ==
LOC: HO.HMGC 09:54
PROVIDERS: PCP Internal Medicine; Visit Provider Internal Medicine
DX: I10 Essential (primary) hypertension (principal); E78.5 Hyperlipidemia, unspecified; Z00.00 Encounter for general adult medical examination without abnormal findings; N95.2 Postmenopausal atrophic vaginitis
CPT/HCPCS: 99214

== ENCOUNTER 2023-03-06 09:38 | Outpatient (REF) | payer OTHER, SELFPAY ==
--- NOTE | ~2023-03-06 | MM_ITS ---
EXAMINATION: MM SCREENING DIGITAL BREAST TOMOSYNTHESIS, BILATERAL CLINICAL INFORMATION: Screening. Asymptomatic. COMPARISON: Mammography: This study is compared with prior exams dating back to 2019. TECHNIQUE: Digital breast tomosynthesis is performed in both the craniocaudal and mediolateral oblique views along with computer-aided detection (CAD). Synthesized 2D images are generated from the tomosynthesis. FINDINGS: The breasts are heterogeneously dense, which may obscure small masses (ACR BI-RADS breast composition Category c). In the upper outer quadrant of the left breast, there is a focal asymmetry which warrants additional mammographic and targeted sonographic evaluation. In the right breast, there are no significant masses, abnormal calcifications, or other abnormalities. MM/MM tomosynthesis screening BI IMPRESSION: Focal asymmetry of the left breast warrants additional mammographic and targeted sonographic evaluation. No mammographic signs of malignancy right breast. ASSESSMENT: BI-RADS BI-RADS 0 - Incomplete: Needs additional Imaging. RECOMMENDATION: 1. Additional views of the left breast 2. Targeted ultrasound if warranted after review of the additional views. 3. Radiology department staff will contact the patient for additional imaging. Additional Imaging required This examination should not preclude the clinical evaluation of a suspicious palpable abnormality. This patient's information was entered into a reminder system with a target due date for their next mammogram.
== END 2023-03-06 09:39 | disposition home or self-care (01) ==
LOC: HO.MAMMO 09:38
PROVIDERS: PCP Internal Medicine; Visit Provider Internal Medicine
DX: Z12.31 Encounter for screening mammogram for malignant neoplasm of breast (principal)
CPT/HCPCS: 77063; 77067

== ENCOUNTER → 2023-03-06 10:00 | Outpatient (BNV) | payer OTHER, SELFPAY | PROVIDERS: PCP Internal Medicine; Visit Provider Radiology Diagnostic Radiology | DX: Z12.31 Encounter for screening mammogram for malignant neoplasm of breast (principal) | CPT/HCPCS: 77063; 77067 ==

== ENCOUNTER 2023-04-11 10:54 | Outpatient (REF) | payer OTHER, SELFPAY ==
--- NOTE | ~2023-04-11 | MM_ITS ---
EXAMINATION: MM DIAGNOSTIC DIGITAL BREAST TOMOSYNTHESIS, LEFT US BREAST LIMITED, LEFT MAMMOGRAPHY: CLINICAL INFORMATION: Diagnostic mammogram left breast to evaluate focal asymmetry seen slightly upper outer quadrant posterior one third. Patient has no history of surgery. COMPARISON: Mammography: 02/28/2022, 02/18/2021, 02/11/2020, 09/08/2018, and 04/30/2016 ([facility]) TECHNIQUE: Digital breast tomosynthesis is performed in the following views: Full-field left 3-D mediolateral view, and spot compression 3-D left CC and MLO views. This was followed by ultrasound. FINDINGS: The breasts are heterogeneously dense, which may obscure small masses (ACR BI-RADS breast composition Category c). On diagnostic views, there is partial dissipation of the somewhat linear appearing focal asymmetry in the slightly upper slightly outer left breast, posterior one third. This has a very similar appearance to prior exams dating back to 2019. There are 2 small circumscribed masses associated with this finding, immediately abutting a dystrophic round calcification. We will evaluate this area with ultrasound. No new suspicious findings in the left breast. ULTRASOUND: CLINICAL INFORMATION: As above. COMPARISON: No prior ultrasound. TECHNIQUE: Targeted sonographic evaluation was performed using a high frequency linear transducer. Left breast was scanned in the upper outer quadrant to include the region of concern. Selected archived documentation. FINDINGS: LEFT BREAST: In the 1:00 to 12:00 axis of the left breast, there are 2 immediately abutting simple cysts, both measuring maximally 4 mm in diameter. These are benign. These directly abut the macrocalcification described in the mammography report. These cysts sit within dense fibrocystic breast changes. These findings are benign. There is no suspicious mass, abnormal shadowing, parenchymal distortion, or edema within the soft tissue planes. MM/MM tomosynthesis added views L IMPRESSION: There are no findings in the left breast suspicious for malignancy. Focal asymmetric density relates to fibrocystic breast tissue with 2 small 4 mm superimposed simple cysts. These are benign. No further follow-up recommended. Recommend the patient resume routine annual screening in February 2024. OVERALL ASSESSMENT: Mammography: BI-RADS 2 - Benign Findings Ultrasound: BI-RADS 2 - Benign Findings RECOMMENDATION: 1 year F/U Results were provided to the patient at time of visit by the technologist. This patient's information was entered into a reminder system with a target due date for their next mammogram.
== END 2023-04-11 10:55 | disposition home or self-care (01) ==
LOC: HO.MAMMO 10:54
PROVIDERS: PCP Internal Medicine; Visit Provider Internal Medicine
DX: R92.1 Mammographic calcification found on diagnostic imaging of breast (principal)
CPT/HCPCS: 76642; 77061; 77065

== ENCOUNTER → 2023-04-11 11:30 | Outpatient (BNV) | payer OTHER, SELFPAY | PROVIDERS: PCP Internal Medicine; Visit Provider Radiology Diagnostic Radiology | DX: R92.8 Other abnormal and inconclusive findings on diagnostic imaging of breast (principal) | CPT/HCPCS: 76642; 77061; 77065 ==

== ENCOUNTER 2023-06-15 09:12 | Outpatient (REF) | payer OTHER, SELFPAY ==
[2023-06-15 11:23] LABS: MANUAL DIFF FLAG NO
[2023-06-15 11:25] LABS: Basophils Absolute Auto 0.1 X10*3/uL (0.0-0.2); Basophils Percent Auto 0.7 % (0-2); Eosinophils Absolute Auto 0.3 X10*3/uL (0.0-0.4); Eosinophils Percent Auto 4.1 % (0-4); Hematocrit 40.3 % (37.0-47.0); Hemoglobin 13.2 g/dl (12.0-16.0); Imm Gran Abs Auto 0.02 X10*3/uL (0.00-0.03); Imm Gran Pct Auto 0.3 % (0.0-0.4); Lymphocytes Absolute Auto 2.8 X10*3/uL (1.2-4.9); Lymphocytes Percent Auto 39.3 % (20-40); Mean Corpuscular HGB Conc 32.8 g/dl (31.0-35.0); Mean Corpuscular Hemoglobin 26.9 pg (27.0-33.0); Mean Corpuscular Volume 82.2 fL (80.0-98.0); Monocytes Absolute Auto 0.7 X10*3/uL (0.1-1.2); Monocytes Percent Auto 9.7 % (2-11); Neutrophils Absolute Auto 3.3 x10*3/uL (2.0-8.3); Neutrophils Percent Auto 45.9 % (45-73); Platelet Count 297 X10*3/uL (160-400); Red Cell Distribution Width 13.5 % (11.0-16.0); White Blood Count 7.2 X10*3/uL (4.8-10.8)
[2023-06-15 11:46] LABS: Alanine Aminotransferase 31 U/L (0-31); Alkaline Phosphatase 109 U/L (39-117); Anion Gap 11 (12-20); Aspartate Amino Transferase 25 U/L (5-31); Bilirubin Total 0.5 mg/dL (0.0-1.0); Blood Urea Nitrogen 12 mg/dL (9-16); Calcium 9.6 mg/dL (8.4-10.2); Carbon Dioxide 26 mmol/L (22-29); Chloride 109 mmol/L (96-108); Cholesterol 161 mg/dL (<200); Estimated Glomerular Filt Rate > 60; Glucose Fasting 91 mg/dL (60-99); HDL Cholesterol 50 mg/dL (>40); LDL Cholesterol Calculated 90 mg/dL (<100); Potassium 3.6 mmol/L (3.3-5.1); Sodium 142 mmol/L (135-145); Total Protein 7.7 g/dL (6.5-8.0); Triglycerides 107 mg/dL (<150)
[2023-06-15 12:02] LABS: TSH reflex Free T4 0.32 uIU/mL (0.32-4.0); Vitamin D 25-OH Total 19.7 ng/mL (>30)
== END 2023-06-15 09:13 | disposition home or self-care (01) ==
LOC: HO.HMGCLDS 09:12
PROVIDERS: PCP Internal Medicine; Visit Provider Internal Medicine
DX: Z00.00 Encounter for general adult medical examination without abnormal findings (principal); E78.5 Hyperlipidemia, unspecified; I10 Essential (primary) hypertension
CPT/HCPCS: 36415; 80053; 80061; 82306; 84443; 85025

== ENCOUNTER 2023-06-20 09:25 | Outpatient (AMB) | payer OTHER, SELFPAY ==
--- NOTE | 2023-06-20 09:26 | A.OFFPC_ITS ---
Vital Signs 06/20/23 09:27 Height 5 ft 1.5 in Weight 174 lb BMI 32.3 BP 130/70 Blood Pressure Location Lt brachial Position Sitting Pulse 98 Pulse Source Pulse Oximeter Pulse Oximetry (%) 96 Oxygen Delivery Method Room Air Intake Visit Reasons: Annual PE Intake Note: Pt is here today for PE. Allergies bisoprolol Adverse Reaction (Intermediate, Verified 06/20/23 09:28) Headache Medication List - Last Reconciled 06/20/23 by Mariaa Weinberg MD amlodipine 2.5 mg PO DAILY atorvastatin 10 mg PO DAILY benazepril 40 mg PO DAILY compr.stocking,knee,long,large 10-20 mmHg estradiol 0.01%(0.1mg/gram) (Estrace) 1 g vaginal QWEEK hydrochlorothiazide 12.5 mg PO DAILY lactobacillus combination no.8 (Adult Probiotic) 3,000 mmu cells PO DAILY omeprazole 20 mg PO DAILY triamcinolone acetonide 0.5% 1 appl topical DAILY Tobacco use date assessed: 06/20/23 Dental Screening Dental Screen Date: 06/20/23 Did you have a dental visit in the last 12 months?: Yes Did you have a dental problem in the last 6 months where you did not have access to dental care?: No Was dental information given to patient?: Patient has dentist HPI Annual PE HPI Details Pt is for PE. She is going to [place] in the end of July for 2 weeks. PFSH Medical History Venous insufficiency of both lower extremities Back pain Hyperlipidemia Normal Pap smear Mammogram normal HTN (hypertension) Tubular adenoma Annual physical exam Surgical History History of ear surgery Hx of colonoscopy Family History Sister Hx of benign breast biopsy Father No problems noted. Mother No problems noted. Sister No problems noted. Son No problems noted. Son No problems noted. 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 1. Little interest or pleasure in doing things: not at all 2. Feeling down, depressed, or hopeless: not at all 3. Trouble falling or staying asleep, or sleeping too much: not at all 4. Feeling tired or having little energy: not at all 5. Poor appetite or overeating: not at all 6. Feeling bad about yourself - or that you are a failure or have let yourself or your family down: not at all 7. Trouble concentrating on things, such as reading the newspaper or watching television: not at all 8. Moving or speaking so slowly that other people could have noticed. Or the opposite - being so fidgety or restless that you have been moving around a lot more than usual: not at all 9. Thoughts that you would be better off or of hurting yourself in some way: not at all Total score: 0 Depression Screening Interpretation: Negative Depression Screening Done: Yes Source: Developed by Drs. Ankit Morales, Silvia Fatima, Rigo Esquivel and colleagues, with an educational keira from [employer]. Thrive Questionnaire Date Thrive assessed: 06/20/23 I am a: Patient What is your living situation today?: I have a steady place to live Within the past 12 months, did the food you bought not last and you didn't have the money to get more?: Never true Within the past 12 months, did you worry whether your food would run out before you got money to buy more?: Never true Do you have trouble paying for medicines?: No Do you have trouble getting transportation to medical appointments?: No Do you have trouble paying your heating and electricity bill?: No Do you have trouble taking care of your child, family member or friend?: No Do you have trouble with day-to-day activities such as bathing, preparing meals, shopping, managing finances, etc.?: No Are you currently unemployed and looking for a job?: No Are you interested in more education?: No Please select the resources that you would like help with: None THRIVE Score: 0 AUDIT C Alcohol Use Questionnaire (AUDIT-C) 1. How often do you have a drink containing alcohol?: Never 3. How often do you have six or more drinks on one occasion?: Never Total Score: 0 LISA-7 AMB Questionnaire LISA-7 Date LISA - 7 assessed: 06/20/23 Feeling nervous, anxious, or on edge: 0 = Not at all Not being able to stop or control worryin = Not at all Worrying too much about different things: 0 = Not at all Trouble relaxin = Not at all Being so restless that it is hard to sit still: 0 = Not at all Becoming easily annoyed or irritable: 0 = Not at all Feeling afraid as if something awful might happen: 0 = Not at all Total LISA-7 score (0-4 normal; 5-9 mild; 10-14 moderate; 15-21 severe): 0 Source: Developed by Drs. Ankit Morales, Silvia Fatima, Rigo Esquivel and colleagues, with an educational keira from [employer]. Review of Systems Const All systems reviewed & are unremarkable except as noted in HPI and below Reports no additional complaints Eyes Reports no additional complaints ENT Reports no additional complaints Card Reports no additional complaints Resp Reports no additional complaints GI Reports no additional complaints Reports no additional complaints Musc Reports no additional complaints Physical exam (Primary Care) Vital Signs: Last Vital Signs Pulse 98 06/20/23 09:27 BP 130/70 06/20/23 09:27 Pulse Ox 96 06/20/23 09:27 Oxygen Delivery Method Room Air 06/20/23 09:27 BMI result Body Mass Index 32.3 Tobacco/Smoking Status: Tobacco use Status Tobacco use date assessed 06/20/23 06/20/23 09:32 Patient Tobacco Use Status Never used Tobacco 06/20/23 09:32 e-Cigarette/Vaping Use Never Used 06/20/23 09:32 PHQ-9: PHQ-9 Score PHQ-9: Total score 0 06/20/23 09:32 Depression Screening Interpretation: Negative Thrive Assessment: Date of Thrive Assessment Date Thrive assessed 06/20/23 06/20/23 09:32 Const General: no acute distress HENMT Head: Yes normal to inspection General nose exam: Normal external nose present Face and sinus: Yes normal facial exam Mouth: Normal oral and palatal mucosa present Throat: Yes posterior oropharynx normal Eyes General: appearance normal, both eyes and all related structures Neck Neck: Yes no lymphadenopathy and Yes supple Resp Effort & Inspection: normal respiratory effort Auscultation: clear to auscultation bilaterally Cardio Rhythm: regular rhythm Heart sounds: S1 normal heart sound present and S2 normal heart sound present GI Inspection: Yes normal to inspection Palpation (GI): Soft to palpation Percussion: Yes normal to percussion Auscultation: normal bowel sounds Assessment and Plan Assessment & Plan (1) HTN (hypertension): Code(s): I10 - Essential (primary) hypertension Plan: Patient was advised to increase amlodipine to 2.5 mg twice a day, continue benazepril and hydrochlorothiazide. Patient was advised to monitor her blood pressure at home and if she tolerates medication well to call for a new prescription. Patient was advised to follow-up in 1 month but she declined. She will return in 4 months for f/u (2) Annual physical exam: Code(s): Z00.00 - Encounter for general adult medical examination without abnormal findings Plan: Well-balanced diet regular physical activity discussed with the patient. She is up-to-date with mammogram. Patient had a Pap smear in [place] last year. She is due for repeat colonoscopy this year and will be referred to GI (3) GERD (gastroesophageal reflux disease): Code(s): K21.9 - Gastro-esophageal reflux disease without esophagitis Plan: Antegrade diet discussed with the patient she will continue omeprazole. Patient will discussed endoscopy during her appointment with GI (4) Colon polyp: Code(s): K63.5 - Polyp of colon Plan: Referred for a repeat colonoscopy (5) Hyperlipidemia: Code(s): E78.5 - Hyperlipidemia, unspecified Plan: Continue low-cholesterol diet Orders: Orders Comprehensive [place]. Panel Fast 4 Months E78.5 - Hyperlipidemia, unspecified, I10 - Essential (primary) hypertension, K21.9 - Gastro-esophageal reflux disease without esophagitis, Z00.00 - Encounter for general adult medical examination without abnormal findings Lipid Panel 4 Months E78.5 - Hyperlipidemia, unspecified, I10 - Essential (primary) hypertension, K21.9 - Gastro-esophageal reflux disease without esophagitis, Z00.00 - Encounter for general adult medical examination without abnormal findings TSH reflex Free T4 4 Months E78.5 - Hyperlipidemia, unspecified, I10 - Essential (primary) hypertension, K21.9 - Gastro-esophageal reflux disease without esophagitis, Z00.00 - Encounter for general adult medical examination without abnormal findings Complete Blood Count Auto Diff 4 Months E78.5 - Hyperlipidemia, unspecified, I10 - Essential (primary) hypertension, K21.9 - Gastro-esophageal reflux disease without esophagitis, Z00.00 - Encounter for general adult medical examination without abnormal findings Vitamin D 25-OH Total 4 Months E78.5 - Hyperlipidemia, unspecified, I10 - Essential (primary) hypertension, K21.9 - Gastro-esophageal reflux disease without esophagitis, Z00.00 - Encounter for general adult medical examination without abnormal findings UA w Microscopic 4 Months E78.5 - Hyperlipidemia, unspecified, I10 - Essential (primary) hypertension, K21.9 - Gastro-esophageal reflux disease without esophagitis, Z00.00 - Encounter for general adult medical examination without abnormal findings Referrals Gastroenterology Referral K21.9 - Gastro-esophageal reflux disease without esophagitis, K63.5 - Polyp of colon, Z00.00 - Encounter for general adult medical examination without abnormal findings Coding Level of Care Code Est Pt Prev Care 40-64y(29432) Diagnoses HTN (hypertension) I10 Annual physical exam Z00.00 GERD (gastroesophageal reflux disease) K21.9 Colon polyp K63.5 Hyperlipidemia E78.5
[2023-06-20 09:27] VITALS: BP 130/70; PULSE 98; O2SAT 96; BMI 32.3
== END 2023-06-20 09:56 | disposition home or self-care (01) ==
PROVIDERS: PCP Internal Medicine; Visit Provider Internal Medicine
DX: I10 Essential (primary) hypertension (principal); Z00.00 Encounter for general adult medical examination without abnormal findings; K21.9 Gastro-esophageal reflux disease without esophagitis; K63.5 Polyp of colon; E78.5 Hyperlipidemia, unspecified
CPT/HCPCS: 99396

== ENCOUNTER → 2023-10-14 13:40 | Outpatient (BNVA) | payer OTHER, SELFPAY | PROVIDERS: PCP Internal Medicine; Visit Provider Nurse Practitioner Family ==

== ENCOUNTER 2024-04-14 13:54 | Outpatient (REF) | payer OTHER, MEDICAID, SELFPAY ==
[2024-04-14 17:00] LABS: Appearance Urine Clear; Color Urine Yellow; Glucose Urine UA Negative (Negative); Leukocyte Esterase Urine Trace (Negative); Nitrite Urine Negative (Negative); PH 5.5 (5.0-9.0); Specific Gravity - Urine <= 1.005 (1.005-1.025); UMIC TRIGGER UA YES; Urine Blood Negative (Negative); Urine Ketones Negative (Negative); Urine Protein Negative (Neg-Trace)
[2024-04-14 17:07] LABS: Bacteria Urine None Seen (None Seen); Hyaline Casts Urine 0-2 /LPF (0-2); RBC Urine 0-2 /HPF (0-2); Squamous Epithelial Cell Urine 0-2 /HPF (0-2); WBC Urine 0-5 /HPF (0-5)
== END 2024-04-14 13:55 | disposition home or self-care (01) ==
LOC: HO.HMGCLDS 13:54
PROVIDERS: PCP Internal Medicine; Visit Provider Internal Medicine
DX: R30.0 Dysuria (principal); N83.202 Unspecified ovarian cyst, left side; I10 Essential (primary) hypertension
CPT/HCPCS: 81001; 87086; 87147; 96127; 99212

== ENCOUNTER 2024-04-14 13:54 | Outpatient (AMB) | payer OTHER, MEDICAID, SELFPAY ==
[2024-04-14 14:12] VITALS: BP 136/76; PULSE 92; RESP 20; TEMP 36.8; O2SAT 95; BMI 33.3
--- NOTE | 2024-04-14 14:12 | A.OFFPC_ITS ---
Vital Signs 04/14/24 14:12 Height 5 ft 1.5 in Weight 179 lb BMI 33.3 BP 136/76 Blood Pressure Location Lt brachial Position Sitting Respiration 20 Pulse 92 Pulse Source Pulse Oximeter Temp 98.3 F Temp Source Oral Pulse Oximetry (%) 95 Oxygen Delivery Method Room Air Intake Visit Reasons: Follow up needs referral to [facility] Intake Note: Pt is here today for a follow up visit. Pt states that she needs a referral to [facility]. Allergies bisoprolol Adverse Reaction (Intermediate, Verified 04/14/24 14:16) Headache Medication List - Last Reconciled 04/14/24 by Mariaa Weinberg MD amlodipine 2.5 mg PO DAILY atorvastatin 10 mg PO DAILY benazepril 40 mg PO DAILY compr.stocking,knee,long,large 10-20 mmHg estradiol 0.01%(0.1mg/gram) (Estrace) 1 g vaginal QWEEK hydrochlorothiazide 12.5 mg PO DAILY lactobacillus combination no.8 (Adult Probiotic) 3,000 mmu cells PO DAILY loperamide (Imodium A-D) 2 mg PO Q6H PRN omeprazole 20 mg PO DAILY triamcinolone acetonide 0.5% 1 appl topical DAILY Tobacco use date assessed: 04/14/24 Dental Screening Dental Screen Date: 04/14/24 Did you have a dental visit in the last 12 months?: Yes Did you have a dental problem in the last 6 months where you did not have access to dental care?: No Was dental information given to patient?: Patient has dentist HPI Follow up needs referral to [facility] [employer] [employer] HPI Details Patient presents complaining of frequent recurrent urinary tract infections, self treating herself with nitrofurantoin, intermittent recovery vaginal burning dryness and irritation on and off. Patient has been using clotrimazole cream on and off with only temporary relief. She denies vaginal discharge. Patient had a pelvic ultrasound 6 months ago in [place] and was found to have left ovarian cyst 4.1 cm. She was advised to follow-up. Hypertension and hyperlipidemia are controlled on current medications [facility] Medical History Venous insufficiency of both lower extremities Back pain Hyperlipidemia Normal Pap smear Mammogram normal HTN (hypertension) Tubular adenoma Annual physical exam Surgical History History of ear surgery Hx of colonoscopy Family History Sister Hx of benign breast biopsy Father No problems noted. Mother No problems noted. Sister No problems noted. Son No problems noted. Son No problems noted. 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 1. Little interest or pleasure in doing things: not at all 2. Feeling down, depressed, or hopeless: not at all 3. Trouble falling or staying asleep, or sleeping too much: not at all 4. Feeling tired or having little energy: not at all 5. Poor appetite or overeating: not at all 6. Feeling bad about yourself - or that you are a failure or have let yourself or your family down: not at all 7. Trouble concentrating on things, such as reading the newspaper or watching television: not at all 8. Moving or speaking so slowly that other people could have noticed. Or the opposite - being so fidgety or restless that you have been moving around a lot more than usual: not at all 9. Thoughts that you would be better off or of hurting yourself in some way: not at all Total score: 0 Depression Screening Interpretation: Negative Depression Screening Done: Yes 26923 - PHQ-9 Billing: Yes Source: Developed by Drs. Ankit Morales, Silvia Fatima, Rigo Esquivel and colleagues, with an educational keira from [employer]. Thrive Questionnaire Date Thrive assessed: 04/14/24 I am a: Patient What is your living situation today?: I have a steady place to live Within the past 12 months, did the food you bought not last and you didn't have the money to get more?: Never true Within the past 12 months, did you worry whether your food would run out before you got money to buy more?: Never true Do you have trouble paying for medicines?: No Do you have trouble getting transportation to medical appointments?: No Do you have trouble paying your heating and electricity bill?: No Do you have trouble taking care of your child, family member or friend?: No Do you have trouble with day-to-day activities such as bathing, preparing meals, shopping, managing finances, etc.?: No Are you currently unemployed and looking for a job?: No Are you interested in more education?: No Please select the resources that you would like help with: None THRIVE Score: 0 AUDIT C Alcohol Use Questionnaire (AUDIT-C) 1. How often do you have a drink containing alcohol?: Never 3. How often do you have six or more drinks on one occasion?: Never Total Score: 0 LISA-7 AMB Questionnaire LISA-7 Date LISA - 7 assessed: 04/14/24 Feeling nervous, anxious, or on edge: 0 = Not at all Not being able to stop or control worryin = Not at all Worrying too much about different things: 0 = Not at all Trouble relaxin = Not at all Being so restless that it is hard to sit still: 0 = Not at all Becoming easily annoyed or irritable: 0 = Not at all Feeling afraid as if something awful might happen: 0 = Not at all Total LISA-7 score (0-4 normal; 5-9 mild; 10-14 moderate; 15-21 severe): 0 Source: Developed by Drs. Ankit Morales, Silvia Fatima, Rigo Esquivel and colleagues, with an educational keira from [employer]. LISA-7 Assessment Billing LISA-7 Assessment Tool: LISA-7 Assessment 72012 Review of Systems Const All systems reviewed & are unremarkable except as noted in HPI and below Eyes Reports no additional complaints ENT Reports no additional complaints Card Reports no additional complaints Resp Reports no additional complaints GI Reports no additional complaints Reports no additional complaints Physical exam (Primary Care) Vital Signs: Last Vital Signs Temp 98.3 F 04/14/24 14:12 Pulse 92 04/14/24 14:12 Resp 20 04/14/24 14:12 BP 136/76 04/14/24 14:12 Pulse Ox 95 04/14/24 14:12 Oxygen Delivery Method Room Air 04/14/24 14:12 BMI result Body Mass Index 33.3 Tobacco/Smoking Status: Tobacco use Status Tobacco use date assessed 04/14/24 04/14/24 14:17 Patient Tobacco Use Status Never used Tobacco 04/14/24 14:14 e-Cigarette/Vaping Use Never Used 04/14/24 14:14 PHQ-9: PHQ-9 Score PHQ-9: Total score 0 04/14/24 14:24 Depression Screening Interpretation: Negative Thrive Assessment: Date of Thrive Assessment Date Thrive assessed 04/14/24 04/14/24 14:17 HENMT Face and sinus: Yes normal facial exam Throat: Yes posterior oropharynx normal Eyes General: appearance normal, both eyes and all related structures Neck Neck: Yes no lymphadenopathy and Yes supple Resp Effort & Inspection: normal respiratory effort Auscultation: clear to auscultation bilaterally Cardio Rhythm: regular rhythm Heart sounds: S1 normal heart sound present and S2 normal heart sound present GI Inspection: Yes normal to inspection Palpation (GI): Soft to palpation Percussion: Yes normal to percussion Auscultation: normal bowel sounds Coding Level of Care Code Est Pt Level 4 (16628) Diagnoses Left ovarian cyst N83.202 Dysuria R30.0 HTN (hypertension) I10 Additional Codes LISA-7 Assessment Billing - LISA-7 Assessment Tool: LISA-7 Assessment 98541 ([id number]) PHQ-9 - 36312 - PHQ-9 Billing: Yes ([id number]) Assessment & Plan Assessment & Plan (1) Left ovarian cyst: Code(s): N83.202 - Unspecified ovarian cyst, left side Category: Medical Plan: obtain pelvic US (2) Dysuria: Code(s): R30.0 - Dysuria Category: Medical Plan: Obtain an UA culture today and bladder US. Patient was advised to restart estradiol vaginal cream 1 g twice a week. She was advised not to take nitrofurantoin unless diagnosed with UTI to prevent bacterial resistance (3) HTN (hypertension): Code(s): I10 - Essential (primary) hypertension Category: Medical Plan: cont current meds Orders: Orders US pelvic and transvaginal Today N83.202 - Unspecified ovarian cyst, left side UA w Microscopic Today R30.0 - Dysuria Urine Culture Today R30.0 - Dysuria US bladder Today R30.0 - Dysuria Medications: Changed From estradiol 0.01%(0.1mg/gram) (Estrace) 1 g vaginal QWEEK 42.5 grams 2RF To estradiol 0.01%(0.1mg/gram) (Estrace) 1 g vaginal 2XW 42.5 grams 3RF
== END 2024-04-14 15:53 | disposition home or self-care (01) ==
PROVIDERS: PCP Internal Medicine; Visit Provider Internal Medicine
DX: N83.202 Unspecified ovarian cyst, left side (principal); R30.0 Dysuria; I10 Essential (primary) hypertension

== ENCOUNTER 2024-04-23 13:51 | Outpatient (REF) | payer OTHER, SELFPAY | END 2024-04-23 13:52 | disposition home or self-care (01) | LOC: HO.HMGCX 13:51 | PROVIDERS: PCP Internal Medicine; Visit Provider Internal Medicine | DX: Z13.89 Encounter for screening for other disorder (principal) ==

== ENCOUNTER 2024-04-30 13:54 | Outpatient (REF) | payer OTHER, SELFPAY ==
--- NOTE | ~2024-04-30 | US_ITS ---
EXAMINATION: US PELVIS CLINICAL INFORMATION: Ovarian cyst, left side. COMPARISON: None available. TECHNIQUE: Ultrasound of the pelvis is performed using both transabdominal and transvaginal transducers along with Doppler. Transvaginal imaging is performed due to inadequate visualization transabdominally. FINDINGS: Uterus: The uterus is anteverted and measures 5 x 2 x 4 cm. The cervix appears normal. The double wall endometrial thickness is 3 mm. The uterus is smooth in contour and has normal myometrial echogenicity. No visible fibroid. Adnexa: Right ovary is not identified.. Left ovary is identified with flow on color Doppler interrogation. There is a 4.5 x 4.4 cm lobulated nonenhancing septated anechoic lesion in the left ovary without flow on color Doppler interrogation. Left ovary measures 5 x 5 x 5 cm. Volume is 52 cc . No free fluid in the cul-de-sac. US/US pelvic and transvaginal IMPRESSION: 4.5 cm simple cystic lesion left ovary. Consider benign versus malignancy. No ovarian torsion, left ovary. Normal uterus. Electronically signed by: Willis Astudillo MD 05/01/2024 09:52 AM EST
== END 2024-04-30 13:55 | disposition home or self-care (01) ==
LOC: HO.HMGCX 13:54
PROVIDERS: PCP Internal Medicine; Visit Provider Internal Medicine
DX: N83.202 Unspecified ovarian cyst, left side (principal); R30.0 Dysuria
CPT/HCPCS: 76830; 76856

== ENCOUNTER → 2024-04-30 13:59 | Outpatient (BNV) | payer OTHER, SELFPAY | PROVIDERS: PCP Internal Medicine; Visit Provider Radiology Diagnostic Radiology | DX: N83.202 Unspecified ovarian cyst, left side (principal) | CPT/HCPCS: 76830; 76856 ==

== ENCOUNTER 2024-07-16 08:21 | Outpatient (REF) | payer OTHER, SELFPAY ==
--- OUTSIDE RECORDS SUMMARY | 2024-07-16 08:39 | XMS_ITS | Data Portability ---
Author Organization [place] - [facility], Allergy Address [address] [place] [address] Care Team Providers Care Engineer Internship Name Role Phone CHELSIE OMAR Primary Care Provider Assessment Encounter Date Assessment Date Assessment LastModified by Organization Details LastModified Time 07/13/2024 07/13/2024 63yo female with history of right transcanal tympanoplasty in 2019 and longstanding right TM perforation presents for evaluation of the ears. She reports stable hearing loss. Otologic exam demonstrates right-sided superior marginal 5% TM perforation and superior central 2% perforation. Middle ear spaces are well-aerated. Images uploaded to chart. Audiometric testing demonstrates right mild to moderate mixed hearing loss, with age-related changes compared to testing in 2020. Left ear with normal hearing through 4K hertz sloping to mild sensorineural hearing loss. Patient is medically cleared for right amplification, but is not interested at this time. Recommend annual follow up with repeat audiometric testing, or sooner with any concerns. [email or web address] Not available 07/13/2024 16:31:10 Plan of Treatment Reminders Order Date Submit Date Provider Last Modified By Organization Details Last Modified Time Details Appointments None record ed. Lab None record ed. Referral None record ed. Procedures None record ed. Surgeries None record ed. Imaging None record ed. Medication Orders None record ed. Patient TargetsNo targets recorded. Patient InstructionsNo instructions recorded. Reason for Referral None Reported. Results Created Date Observation Date Name Description Value Unit Range Abnormal Flag Note LastModifiedBy Organization Detail LastModifiedTime 07/15/19 25 audio gram No observ ation record ed. BARCODE Not Available 2024 09:26:59 Result Notes None recorded. Problems Name Problem SNOMED Code Status Onset Date Resolution Date Notes Provider Name and Address Organization Details Recorded Time Impacted cerumen in right ear 73841758092 99825 Active 2022 Impacted cerumen, right ear; Note: Date Diagnose d: 3 11:38 AM (H61.21) Not Available [facility] 4 03:06:49 Left conducti ve hearing loss 12066567084 07 Active 2018 Conducti ve hearing loss, unilater al, left ear with restrict ed hearing on the contrala teral side; Note: Date Diagnose d: 09/15/2018 10:51 AM (H90.A12 ) Not Available [facility] 4 03:06:48 Mixed conducti ve and sensorin eural hearing loss of right ear 64928282855 105 Active 2018 Mixed conducti ve and sensorin eural hearing loss, unilater al, right ear with restrict ed hearing on the contrala teral side; Note: Date Diagnose d: 09/15/2018 10:51 AM (H90.A31 ) Not Available [facility] 4 03:06:49 Infectiv e otitis externa of right ear 00509481322 36944 Active 2018 Other infectiv e otitis externa, right ear; Note: Date Diagnose d: 9 9:29 AM (H60.391 ) Not Available [facility] 4 03:06:49 Central perforat ion of left tympanic membrane 55634773754 70286 Completed 201410/11/2023 Central perforat ion of tympanic membrane , left ear; Note: Date Diagnose d: 5 10:52 AM (H72.02) Not Available [facility] 4 03:06:50 Conducti ve hearing loss, bilatera l 924776347 Active 2014 Conducti ve hearing loss, bilatera l; Note: Date Diagnose d: 5 10:23 AM (H90.0) Not Available [facility] 4 03:06:48 Otalgia of right ear 8777764767 Completed 201810/11/2023 Otalgia, right ear; Note: Date Diagnose d: 9 9:29 AM (H92.01) Not Available [facility] 4 03:06:50 Otalgia of left ear 8592098739 Active 2016 Otalgia, left ear; Note: Date Diagnose d: 06/12/2016 3:47 PM (H92.02) Not Available [facility] 4 03:06:48 Marginal perforat ion of tympanic membrane 61209456 Active 2018 Other marginal perforat ions of tympanic membrane , right ear; Note: Date Diagnose d: 06/13/2018 9:48 AM (H72.2X1 ) Not Available [facility] 4 03:06:51 Acute myringit is of right ear 64816179580 49169 Active 2020 Acute myringit is, right ear; Note: Date Diagnose d: 01/04/20 21 4:36 PM (H73.001 ) Not Available [facility] 4 03:06:50 Follow-u p visit Active 2018 Encounte r for follow-u p examinat ion after complete d treatmen t for conditio ns other than malignan t neoplasm ; Note: Date Diagnose d: 01/06/20 19 2:54 PM (Z09) Medica l surveill ance followin g complete d treatmen t; Note: Date Diagnose d: 04/13/2016 10:57 AM (Z09) ; Start Date : 04/13/19 17 Not Available [facility] 4 03:06:48 Otorrhea of right ear 65753970362 76424 Active 2020 Otorrhea , right ear; Note: Date Diagnose d: 01/04/20 21 4:36 PM (H92.11) Otorrh ea, right ear; Note: Date Diagnose d: 9 9:29 AM (H92.11) ; Start Date : 05/29/19 19 Otorr hea, right ear; Note: Date Diagnose d: 7 11:07 AM (H92.11) ; Start Date : 05/01/19 17 Not Available [facility] 4 03:06:49 Bilatera l hearing loss 12429366 Active 2024 CHANDA VARGAS PA-C [address] [facility],[place] [address], [place], [address] , [facility] 16:31:49 Problem Notes None recorded. Procedures Surgical History Date Name Laterality Status Provider Name and Address Organization Details Recorded Time 07/14/19 25 Tympanometry - 34861 [facility] [address] [facility],[place] [address], [place], [address], [facility] 07/13/2024 14:45:54 07/14/19 25 Air & Bone Audio - 25247 completed [facility] [address] [facility],[place] [address], [place], [address], [facility] 07/13/2024 14:45:49 Imaging Results Imaging Date Name Status LastModified by Organiz ation Details LastModified Time 07/14/2024 audiogram completed BARCODE Information no t available 07/14/2024 09:26:59 Procedure Notes None recorded. Medical Equipment None Reported. Medications Name Sig Start Date Stop Date Status Note LastModified by Organization Details LastModified Time loperamid e 2 mg capsule TAKE 1 CAPSULE BY MOUTH EVERY 6 HOURS NEEDED FOR LOOSE STOOL *NOT COVERED* active Not Available Not Available No t Available atorvasta tin 10 mg tablet TAKE 1 TABLET BY MOUTH EVERY DAY active Not Available Not Available No t Available azithromy meenakshi 250 mg tablet TAKE 2 TABLETS BY MOUTH TODAY, THEN TAKE 1 TABLET DAILY FOR 4 DAYS DIRECTED active Not Available Not Available No t Available amlodipin e 2.5 mg tablet TAKE 1 TABLET (2.5 MG) BY MOUTH DAILY active Not Available Not Available No t Available Ciloxan 0.3 % eye drops 2018 active Medicati on ID: [id number] D uration Value: 14 Prescri bed By Name: HOMERO Shepherd nd Name: Ciloxan Send Method: E-Prescr ibed Sub s Allowed: subs OK Speci al Instruct ion: Instill 4 drops twice a day into the affected ear. Med icationG enericNa me: Ciloxan Not Available Not Available Not Available omeprazol e 40 mg capsule,d elayed release 10/31 completed Medicati on ID: [id number] Du ration Value: 90 Reason: () Brand Name: omeprazo le Send Method: E-Prescr ibed Sub s Allowed: subs OK Speci al Instruct ion: TAKE ONE CAPSULE BY MOUTH EVERY DAY BEFORE A MEAL [facility]: omeprazo le Not Available Not Available Not Available amoxicill in 875 mg tablet Take 1 tablet by mouth twice a day 05/15 completed Medicati on ID: [id number] D uration Value: 10 Reason: () Brand Name: amoxicil omid Send Method: E-Prescr ibed Sub s Allowed: subs OK Medic ationGen ericName : amoxicil omid Not Available Not Available Not Available baclofen 10 mg tablet TAKE 1 TABLET BY MOUTH TWICE A DAY active Not Available Not Available No t Available Gentle Laxative (bisacody l) 5 mg tablet,de layed release 2018 active Medicati on ID: [id number] D uration Value: 1 Brand Name: Gentle Laxative Send Method: E-Prescr ibed Sub s Allowed: subs OK Speci al Instruct ion: TAKE 2 TABLETS TWICE A DAY- TWO AT NOON AND TWO AT 5PM BEFORE STARTING PREP- DAY BEFORE PROCEDUR E Medica tionGene ricName: Gentle Laxative Not Available Not Available Not Available omeprazol e 20 mg capsule,d elayed release TAKE 1 CAPSULE BY MOUTH EVERY DAY active Not Available Not Available No t Available benazepri l 20 mg tablet 09/15 completed Medicati on ID: [id number] Re ason: () Brand Name: benazepr il Send Method: E-Prescr ibed Sub s Allowed: subs OK Medic ationGen ericName : benazepr il Not Available Not Available Not Available estradiol 0.01% (0.1 mg/gram) vaginal cream INSERT 1 GRAM VAGINALL Y 2 TIMES A WEEK active Not Available Not Available No t Available benazepri l 40 mg tablet TAKE 1 TABLET BY MOUTH EVERY DAY active Not Available Not Available No t Available [place] 5 mg-325 mg tablet 1-2 tablet by mouth 2016 active Medicati on ID: [id number] D uration Value: 7 Prescri bed By Name: Ruby [place] nd Name: [place] Se nd Method: E-Prescr ibed Sub s Allowed: subs OK Medic ationGen ericName : [place] Not Available Not Available Not Available amoxicill in 875 mg-potass ium clavulana te 125 mg tablet TAKE 1 TABLET BY MOUTH TWICE A DAY FOR 7 DAYS active Not Available Not Available No t Available TobraDex 0.3 %-0.1 % eye drops,moises pension 2018 active Medicati on ID: [id number] D uration Value: 10 Prescri bed By Name: Ruby [place] nd Name: TobraDex Send Method: E-Prescr ibed Sub s Allowed: subs OK Speci al Instruct ion: Instill 4 drops in the affected ear BID for 10 days Med icationG enericNa me: TobraDex Not Available Not Available Not Available Benicar 20 mg tablet 01/05 completed Medicati on ID: [id number] Re ason: () Brand Name: Benicar Send Method: E-Prescr ibed Sub s Allowed: subs OK Medic ationGen ericName : Benicar Not Available Not Available Not Available Ciprodex 0.3 %-0.1 % ear drops,formerly [facility] Instill 4 drop into right ear twice a day as directed 2020 active Medicati on ID: [id number] D uration Value: 14 Prescri bed By Name: Ruby [place] nd Name: Ciprodex Send Method: E-Prescr ibed Sub s Allowed: subs OK Speci al Instruct ion: x 14 days Med icationG enericNa me: Ciprodex Not Available Not Available Not Available hydrochlo rothiazid e 12.5 mg tablet TAKE 1 TABLET BY MOUTH EVERY DAY active Not Available Not Available No t Available GaviLyte- N 420 gram oral solution 09/15 completed Medicati on ID: [id number] D uration Value: 1 Reason: () Brand Name: GaviLyte -N Send Method: E-Prescr ibed Sub s Allowed: subs OK Speci al Instruct ion: DAY BEFORE PROCEDUR E START AT 5PM, 8OZ GLASS EVERY 15MIN AND FINISH BY 9PM ORALLY 1 DAY Medi cationGe nericNam e: GaviLyte -N Not Available Not Available Not Available Vitals Date Recorded Body height Body mass index (BMI) Body weight Provider Name and Address Organization Details Last Updated DateTime 07/13/2024 152.4 cm 28.3 kg/m2 14982.89 g Vero Baig [place] [facility] 07/13/2024 14:59:55 Social History None recorded. Functional Status None recorded. Mental Status None recorded. Family History Nothing Reported. Medical History No medical history recorded. Gynecological HistoryNo gynecological history recorded. Obstetrics History GPAL:G 0 P 0 0 0 0 Past Encounters Encounter ID Performer Location Encounter Start Date Encounter Closed Date Diagnosis/Indication Diagnosis SNOMED-CT Code Diagnosis ICD10 Code Diagnosis Note [id number] CHANDA VARGAS PA-C [facility] [address] [address] 07/13/2024 14:25:13 07/13/2024 15:23:14 Marginal perforation of tympanic membrane 90621303 H72.2X1 Right Ear:Mild to moderate MHL.large volume -TM perf.Left Ear:Normal hearing through 4K Hz sloping to a mild SNHL.Type A tympanogra m. Mixed cond uctive and sensorineural hearing loss of right ear 5519055974 9105 H90.A31 Bilateral hearing loss 71738618 H90.A22 Health Concerns Section Related Observation LastModified by Organization Detai ls LastModified Time None Recorded Concern Status LastModified by Organization Details LastModified Time None Recorded Advance Directives Directive None Recorded Payers Insurance Date Sequence Insurance Name Policy Number Policy Underwood Covered Member ID Underwood Member ID Guarantor Name 07/13/2024 1 [employer] [id number] Fifi Hook [id number] Fifi Hook 07/13/2024 2 [place] [facility] Fifi Hook [id number] Fifi Hook 07/13/2024 1 [facility] [id number] Fifi Hook [id number] Fifi Hook Notes Date Note Type Note Provider Name and Address Organization Details Recorded Time 07/13/2024 text/html 63yo female with history of right transcanal tympanoplasty in 2019 (TM) presents for evaluation of hearing loss. History of left ear surgery as well. She reports stable hearing loss. Denies ear pain, drainage, tinnitus or dizziness. She is interested in a hearing aid consult. CALLIE LOBO MD [address] [place] [address], [place], [address], [facility] - [facility] 07/14/2024 08:56:16 OBGyn Episode No OBEpisode recorded.
--- OUTSIDE RECORDS SUMMARY | 2024-07-16 08:40 | XMS_ITS | Continuity of Care Document ---
Author Organization [place] - [facility], [facility] Address [address] [place] [address] Care Team Providers Care Incubator Tender Name Role Phone MOUSTAPHA HOLGUINANNA Primary Care Provider [phone] Assessment Encounter Date Assessment Date Assessment LastModified [...] Recorded Time Impacted cerumen in right ear 10956143580 30073 Active 2022 Impacted cerumen, right ear; Note: Date Diagnose d: 3 11:38 AM (H61.21) Not Available [facility] 4 03:06:[facility] Left conducti ve hearing loss 10630159597 07 Active 2018 Conducti ve hearing loss, unilater al, left ear with restrict ed hearing on the contrala teral side; Note: Date Diagnose d: 09/15/2018 10:51 AM (H90.A12 ) Not Available [facility] 4 03:06:48 Mixed conducti ve and sensorin eural hearing loss of right ear 45341524854 105 Active 2018 Mixed conducti ve and sensorin eural hearing loss, unilater al, right ear with restrict ed hearing on the contrala teral side; Note: Date Diagnose d: 09/15/2018 10:51 AM (H90.A31 ) Not Available [facility] 4 03:06:49 Infectiv e otitis externa of right ear 49284454688 31140 Active 2018 Other infectiv e otitis externa, right ear; Note: Date Diagnose d: 9 9:29 AM (H60.391 ) Not Available [facility] 4 03:06:49 Central perforat ion of left tympanic membrane 38293507728 23972 Completed 201410/11/2023 Central perforat ion of tympanic membrane , left ear; Note: Date Diagnose d: 5 10:52 AM (H72.02) Not Available [facility] 4 03:06:50 Conducti ve hearing loss, bilatera l 836379587 Active 2014 Conducti ve hearing loss, bilatera l; Note: Date Diagnose d: 5 10:23 AM (H90.0) Not Available [facility] 4 03:06:48 Otalgia of right ear 9958319508 Completed 201810/11/2023 Otalgia, right ear; Note: Date Diagnose d: 9 9:29 AM (H92.01) Not Available [facility] 4 03:06:50 Otalgia of left ear 4009354441 Active 2016 Otalgia, left ear; Note: Date Diagnose d: 06/12/2016 3:47 PM (H92.02) Not Available [facility] 4 03:06:48 Marginal perforat ion of tympanic membrane 95265111 Active 2018 Other marginal perforat ions of tympanic membrane , right ear; Note: Date Diagnose d: 06/13/2018 9:48 AM (H72.2X1 ) Not Available [facility] 4 03:06:51 Acute myringit is of right ear 09717079413 88593 Active 2020 Acute myringit is, right ear; Note: Date Diagnose d: 01/04/20 21 4:36 PM (H73.001 ) Not Available [facility] 4 03:06:50 Follow-u p visit Active 2018 Encounte r for follow-u p examinat ion after complete d treatmen t for conditio ns other than malignan t neoplasm ; Note: Date Diagnose d: 01/06/20 19 2:54 PM (Z09) Medica l surveill ance followin g complete d treatmen t; Note: Date Diagnose d: 04/13/2016 10:57 AM (Z09) ; Start Date : 04/13/19 17 Not Available [facility] 4 03:06:48 Otorrhea of right ear 80607625160 00202 Active 2020 Otorrhea , right ear; Note: Date Diagnose d: 01/04/20 21 4:36 PM (H92.11) Otorrh ea, right ear; Note: Date Diagnose d: 9 9:29 AM (H92.11) ; Start Date : 05/29/19 19 Otorr hea, right ear; Note: Date Diagnose d: 7 11:07 AM (H92.11) ; Start Date : 05/01/19 17 Not Available [facility] 4 03:06:49 Bilatera l hearing loss 34255990 Active 2024 CHANDA VARGAS PA-C [address] [facility],[place] [address], [place], [address] , [facility] 16:31:49 Problem Notes None recorded. Procedures Surgical History Date Name Laterality Status Provider Name and Address Organization Details Recorded Time 07/14/19 25 Tympanometry - 49494 completed [facility] [address] [facility],[address], [address], [facility] 07/13/2024 14:45:54 07/14/19 25 Air [employer] Bone Audio - 86997 completed [facility] [address] [facility],[place] [address], [place], [address], [facility] 07/13/2024 14:45:49 Imaging Results None recorded. Procedure Notes None recorded. Medical Equipment None [...] eye drops 2018 active Medicati on ID: [id number] D uration Value: 14 Prescri bed By Name: HOMERO Shepherd nd Name: Ciloxan Send Method: E-Prescr ibed Sub s Allowed: subs OK Speci al Instruct ion: Instill 4 drops twice a day into the affected ear. Med icationG enericNa me: Ciloxan Not Available Not Available Not Available omeprazol e 40 mg capsule,d elayed release 10/31 completed Medicati on ID: [id number] Du ration Value: 90 Reason: () Brand Name: omeprazo le Send Method: E-Prescr ibed Sub s Allowed: subs OK Speci al Instruct ion: TAKE ONE CAPSULE BY MOUTH EVERY DAY BEFORE A MEAL Med icationG enericNa me: omeprazo le Not Available Not Available Not Available amoxicill in 875 mg tablet Take 1 tablet by mouth twice a day 05/15 completed Medicati on ID: [id number] D uration Value: 10 Reason: () Brand [...] layed release 2018 active Medicati on ID: [id number] D uration Value: 1 Brand Name: Gentle [...] mg tablet 09/15 completed Medicati on ID: [id number] Re ason: () Brand Name: benazepr il [...] Not Available Not Available No t Available [place] 5 mg-325 mg tablet 1-2 tablet by mouth 2016 active Medicati on ID: [id number] D uration Value: 7 Prescri bed By Name: Kimo Holloway M.D. Bra nd Name: [place] Se nd Method: E-Prescr ibed Sub s Allowed: subs OK Medic ationGen ericName : [place] Not Available Not Available Not Available amoxicill in 875 mg-potass ium clavulana te 125 mg tablet TAKE 1 TABLET BY MOUTH TWICE A DAY FOR 7 DAYS active Not Available Not Available No t Available TobraDex 0.3 %-0.1 % eye drops,moises pension 2018 active Medicati on ID: [id number] D uration Value: 10 Prescri bed By Name: Ruby [place] nd Name: TobraDex Send Method: E-Prescr ibed Sub s Allowed: subs OK Speci al Instruct ion: Instill 4 drops in the affected ear BID for 10 days Med icationG enericNa me: TobraDex Not Available Not Available Not Available Benicar 20 mg tablet 01/05 completed Medicati on ID: [id number] Re ason: () Brand Name: Benicar Send Method: E-Prescr ibed Sub s Allowed: subs OK Medic ationGen ericName : Benicar Not Available Not Available Not Available Ciprodex 0.3 %-0.1 % ear drops,moises pension Instill 4 drop into right ear twice a day as directed 2020 active Medicati on ID: [id number] D uration Value: 14 Prescri bed By [...] oral solution 09/15 completed Medicati on ID: [id number] D uration Value: 1 Reason: () Brand [...] Updated DateTime 07/13/2024 152.4 cm 28.3 kg/m2 01430.89 g Vero Baig [place] - [facility] 07/13/2024 14:59:55 Social History None recorded. Functional Status None recorded. Mental Status None recorded. Family History Nothing Reported. Medical History No medical history recorded. Gynecological HistoryNo gynecological history recorded. Obstetrics History GPAL:G 0 P 0 0 0 0 Past Encounters Encounter ID Performer Location Encounter Start Date Encounter Closed Date Diagnosis/Indication Diagnosis SNOMED-CT Code Diagnosis ICD10 Code Diagnosis Note [id number] CHANDA VARGAS PA-C [facility] [address] [place] [address] 07/13/2024 14:25:13 07/13/2024 15:23:14 Marginal perforation of tympanic membrane 59335440 H72.2X1 Right Ear:Mild to moderate MHL.large volume -TM perf.Left Ear:Normal hearing through 4K Hz sloping to a mild SNHL.Type A tympanogra m. Mixed cond uctive and sensorineural hearing loss of right ear 1231535627 9105 H90.A31 Bilateral hearing loss 40844081 H90.A22 Health Concerns Section Related Observation LastModified by Organization Detai ls LastModified Time None Recorded Concern Status LastModified by Organization Details LastModified Time None Recorded Payers Encounter Date Sequence Insurance Name Policy Number Policy Underwood Covered Member ID Underwood Member ID Guarantor Name 07/13/2024 1 [facility] [id number] Fifi Hook [id number] Fifi Hook 07/13/2024 2 MEDICAID-[place]: [facility] Fifi Hook [id number] Fifi Hook Notes Date Note Type Note [...] a hearing aid consult. CALLIE LOBO MD [address] [place] [address], [address], [facility] - [facility] 07/14/2024 08:56:16 OBGyn Episode No OBEpisode recorded.
[2024-07-16 10:28] LABS: MANUAL DIFF FLAG NO
[2024-07-16 10:38] LABS: Appearance Urine Clear; Color Urine Yellow; Glucose Urine UA Negative (Negative); Leukocyte Esterase Urine Small (1+) (Negative); Nitrite Urine Negative (Negative); PH 5.5 (5.0-9.0); UMIC TRIGGER UA YES; Urine Blood Negative (Negative); Urine Ketones Negative (Negative); Urine Protein Negative (Neg-Trace)
[2024-07-16 10:41] LABS: Bacteria Urine None Seen (None Seen); Hyaline Casts Urine 0-2 /LPF (0-2); RBC Urine 0-2 /HPF (0-2); Squamous Epithelial Cell Urine 0-2 /HPF (0-2)
[2024-07-16 10:47] LABS: Basophils Absolute Auto 0.1 X10*3/uL (0.0-0.2); Basophils Percent Auto 0.9 % (0-2); Eosinophils Absolute Auto 0.2 X10*3/uL (0.0-0.4); Eosinophils Percent Auto 2.8 % (0-4); Hematocrit 40.1 % (37.0-47.0); Hemoglobin 13.7 g/dl (12.0-16.0); Imm Gran Abs Auto 0.01 X10*3/uL (0.00-0.03); Imm Gran Pct Auto 0.2 % (0.0-0.4); Lymphocytes Absolute Auto 2.6 X10*3/uL (1.2-4.9); Lymphocytes Percent Auto 40.9 % (20-40); Mean Corpuscular HGB Conc 34.2 g/dl (31.0-35.0); Mean Corpuscular Hemoglobin 27.6 pg (27.0-33.0); Mean Corpuscular Volume 80.7 fL (80.0-98.0); Mean Platelet Volume 10.9 fL (9.4-12.3); Monocytes Absolute Auto 0.6 X10*3/uL (0.1-1.2); Monocytes Percent Auto 9.1 % (2-11); Neutrophils Absolute Auto 2.9 x10*3/uL (2.0-8.3); Neutrophils Percent Auto 46.1 % (45-73); Platelet Count 275 X10*3/uL (160-400); Red Blood Count 4.97 X10*6/uL (4.20-5.50); Red Cell Distribution Width 13.2 % (11.0-16.0); White Blood Count 6.4 X10*3/uL (4.8-10.8)
[2024-07-16 11:05] LABS: Alanine Aminotransferase 37 U/L (0-31); Albumin Level 4.2 g/dL (3.5-5.0); Alkaline Phosphatase 102 U/L (39-117); Anion Gap 12 (12-20); Aspartate Amino Transferase 26 U/L (5-31); Bilirubin Total 0.7 mg/dL (0.0-1.0); Blood Urea Nitrogen 22 mg/dL (9-16); Calcium 9.7 mg/dL (8.4-10.2); Carbon Dioxide 26 mmol/L (22-29); Chloride 106 mmol/L (96-108); Cholesterol 198 mg/dL (<200); Estimated Glomerular Filt Rate > 60; Glucose Fasting 102 mg/dL (60-99); HDL Cholesterol 61 mg/dL (>40); LDL Cholesterol Calculated 111 mg/dL (<100); Potassium 3.9 mmol/L (3.3-5.1); Sodium 140 mmol/L (135-145); Total Protein 7.3 g/dL (6.5-8.0); Triglycerides 131 mg/dL (<150)
[2024-07-16 11:22] LABS: TSH reflex Free T4 0.39 uIU/mL (0.32-4.0); Vitamin D 25-OH Total 47.9 ng/mL (>30)
== END 2024-07-16 08:22 | disposition home or self-care (01) ==
LOC: HO.HMGCLDS 08:21
PROVIDERS: PCP Internal Medicine; Visit Provider Internal Medicine
DX: Z00.00 Encounter for general adult medical examination without abnormal findings (principal); E78.5 Hyperlipidemia, unspecified; I10 Essential (primary) hypertension; K21.9 Gastro-esophageal reflux disease without esophagitis; R30.0 Dysuria
CPT/HCPCS: 36415; 80053; 80061; 81001; 82306; 84443; 85025; 87086

== ENCOUNTER 2024-07-17 08:06 | Outpatient (AMB) | payer MEDICAID, SELFPAY ==
[2024-07-17 08:16] VITALS: BP 124/70; PULSE 84; RESP 20; TEMP 36.6; O2SAT 97; BMI 32.9
--- NOTE | 2024-07-17 08:16 | A.OFFPC_ITS ---
Vital Signs 07/17/24 08:16 Height 5 ft 1.5 in Weight 177 lb BMI 32.9 BP 124/70 Blood Pressure Location Lt brachial Position Sitting Respiration 20 Pulse 84 Pulse Source Pulse Oximeter Temp 97.8 F Temp Source Oral Pulse Oximetry (%) 97 Oxygen Delivery Method Room Air Intake Visit Reasons: Annual PE - see comments Intake Note: Pt is here today for PE. Allergies bisoprolol Adverse Reaction (Intermediate, Verified 07/17/24 08:18) Headache Tobacco use date assessed: 07/17/24 Dental Screening Dental Screen Date: 07/17/24 Did you have a dental visit in the last 12 months?: Yes Did you have a dental problem in the last 6 months where you did not have access to dental care?: No Was dental information given to patient?: Patient has dentist HPI Annual PE - see comments HPI Details Patient presents for physical. She will have left ovarian cyst removed by rip/mould operator at [facility] Medical History (Updated 07/17/24 @ 08:45 by Mariaa Weinberg MD) Venous insufficiency of both lower extremities Back pain Hyperlipidemia Normal Pap smear Mammogram normal HTN (hypertension) Tubular adenoma Annual physical exam Surgical History (Updated 07/17/24 @ 09:00 by Mariaa Weinberg MD) History of ear surgery Hx of colonoscopy Family History Sister Hx of benign breast biopsy Father No problems noted. Mother No problems noted. Sister No problems noted. Son No problems noted. Son No problems noted. 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 1. Little interest or pleasure in doing things: not at all 2. Feeling down, depressed, or hopeless: not at all 3. Trouble falling or staying asleep, or sleeping too much: not at all 4. Feeling tired or having little energy: not at all 5. Poor appetite or overeating: not at all 6. Feeling bad about yourself - or that you are a failure or have let yourself or your family down: not at all 7. Trouble concentrating on things, such as reading the newspaper or watching television: not at all 8. Moving or speaking so slowly that other people could have noticed. Or the opposite - being so fidgety or restless that you have been moving around a lot more than usual: not at all 9. Thoughts that you would be better off or of hurting yourself in some way: not at all Total score: 0 Depression Screening Interpretation: Negative Depression Screening Done: Yes [id number] - PHQ-9 Billing: Yes Source: Developed by Drs. Ankit Morales, Silvia Fatima, Rigo Esquivel and colleagues, with an educational keira from [employer]. Thrive Questionnaire Date Thrive assessed: 07/17/24 I am a: Patient What is your living situation today?: I have a steady place to live Within the past 12 months, did the food you bought not last and you didn't have the money to get more?: Never true Within the past 12 months, did you worry whether your food would run out before you got money to buy more?: Never true Do you have trouble paying for medicines?: No Do you have trouble getting transportation to medical appointments?: No Do you have trouble paying your heating and electricity bill?: No Do you have trouble taking care of your child, family member or friend?: No Do you have trouble with day-to-day activities such as bathing, preparing meals, shopping, managing finances, etc.?: No Are you currently unemployed and looking for a job?: No Are you interested in more education?: No Please select the resources that you would like help with: None THRIVE Score: 0 AUDIT C Alcohol Use Questionnaire (AUDIT-C) 1. How often do you have a drink containing alcohol?: Never 3. How often do you have six or more drinks on one occasion?: Never Total Score: 0 LISA-7 AMB Questionnaire LISA-7 Date LISA - 7 assessed: 07/17/24 Feeling nervous, anxious, or on edge: 0 = Not at all Not being able to stop or control worryin = Not at all Worrying too much about different things: 0 = Not at all Trouble relaxin = Not at all Being so restless that it is hard to sit still: 0 = Not at all Becoming easily annoyed or irritable: 0 = Not at all Feeling afraid as if something awful might happen: 0 = Not at all Total LISA-7 score (0-4 normal; 5-9 mild; 10-14 moderate; 15-21 severe): 0 Source: Developed by Drs. Ankit Morales, Silvia Fatima, Rigo Esquivel and colleagues, with an educational keira from [employer]. LISA-7 Assessment Billing LISA-7 Assessment Tool: LISA-7 Assessment 84338 Review of Systems Const All systems reviewed & are unremarkable except as noted in HPI and below Eyes Reports no additional complaints ENT Reports no additional complaints Card Reports no additional complaints Resp Reports no additional complaints GI Reports no additional complaints Reports no additional complaints Physical exam (Primary Care) Vital Signs: Last Vital Signs Temp 97.8 F 07/17/24 08:16 Pulse 84 07/17/24 08:16 Resp 20 07/17/24 08:16 BP 124/70 07/17/24 08:16 Pulse Ox 97 07/17/24 08:16 Oxygen Delivery Method Room Air 07/17/24 08:16 BMI result Body Mass Index 32.9 Tobacco/Smoking Status: Tobacco use Status Tobacco use date assessed 07/17/24 07/17/24 08:24 Patient Tobacco Use Status Never used Tobacco 07/17/24 08:24 e-Cigarette/Vaping Use Never Used 07/17/24 08:24 PHQ-9: PHQ-9 Score PHQ-9: Total score 0 07/17/24 08:27 Depression Screening Interpretation: Negative Thrive Assessment: Date of Thrive Assessment Date Thrive assessed 07/17/24 07/17/24 08:27 Const General: no acute distress HENMT Head: Yes normal to inspection Ears: TM's normal bilaterally Face and sinus: Yes normal facial exam Mouth: Normal oral and palatal mucosa present Throat: Yes posterior oropharynx normal Eyes General: appearance normal, both eyes and all related structures Neck Neck: Yes no lymphadenopathy and Yes supple Resp Effort & Inspection: normal respiratory effort Auscultation: clear to auscultation bilaterally Cardio Rhythm: regular rhythm Heart sounds: S1 normal heart sound present and S2 normal heart sound present GI Inspection: Yes normal to inspection Palpation (GI): Soft to palpation Percussion: Yes normal to percussion Auscultation: normal bowel sounds Coding Level of Care Code Est Pt Prev Care 40-64y(73838) Diagnoses Left ovarian cyst N83.202 HTN (hypertension) I10 Hyperlipidemia E78.5 Annual physical exam Z00.00 Additional Codes LISA-7 Assessment Billing - LISA-7 Assessment Tool: LISA-7 Assessment 89288 ([id number]) PHQ-9 - 99911 - PHQ-9 Billing: Yes ([id number]) Assessment & Plan Assessment & Plan (1) Left ovarian cyst: Comment: 4.5 cm on pelvic US, referred to [facility] [employer] 05/07/2024 Code(s): N83.202 - Unspecified ovarian cyst, left side Category: Medical Plan: Follow-up with hogshead liner (2) HTN (hypertension): Code(s): I10 - Essential (primary) hypertension Category: Medical Plan: Continue current medications (3) Hyperlipidemia: Code(s): E78.5 - Hyperlipidemia, unspecified Category: Medical Plan: Continue statin (4) Annual physical exam: Code(s): Z00.00 - Encounter for general adult medical examination without abnormal findings Category: Medical Plan: Well-balanced diet regular physical activity discussed with the patient. Follow-up in 6 months with a fasting labs before. Patient declined screening mammogram this year Medications: Refilled amlodipine 2.5 mg PO DAILY 90 tabs 3RF atorvastatin 10 mg PO DAILY 90 tabs 3RF hydrochlorothiazide 12.5 mg PO DAILY 90 tabs 3RF estradiol 0.01%(0.1mg/gram) (Estrace) 1 g vaginal 2XW 42.5 grams 3RF omeprazole 20 mg PO DAILY 90 caps 3RF
== END 2024-07-17 08:53 | disposition home or self-care (01) ==
LOC: HO.HMCC 08:06
PROVIDERS: PCP Internal Medicine; Visit Provider Internal Medicine
DX: N83.202 Unspecified ovarian cyst, left side (principal); I10 Essential (primary) hypertension; E78.5 Hyperlipidemia, unspecified; Z00.00 Encounter for general adult medical examination without abnormal findings

== ENCOUNTER → 2024-07-17 08:06 | Outpatient (BNVA) | payer OTHER, SELFPAY | PROVIDERS: PCP Internal Medicine; Visit Provider Internal Medicine | DX: Z00.00 Encounter for general adult medical examination without abnormal findings (principal); N83.202 Unspecified ovarian cyst, left side; E78.5 Hyperlipidemia, unspecified; I10 Essential (primary) hypertension | CPT/HCPCS: 96127; 99396 ==